=== PATIENT | male | born 1965 | race Caucasian/White ===

== ENCOUNTER 2021-08-30 09:47 | Emergency (ER) | payer MEDICAID, SELFPAY ==
[2021-08-30 09:48] VITALS: BP 119/64; PULSE 81; RESP 18; TEMP 36.7; O2SAT 96; BMI 35.0
[2021-08-30 09:56] VITALS: BP 119/64; PULSE 81; RESP 18; TEMP 36.6; O2SAT 96; BMI 35.2
--- NOTE | 2021-08-30 10:09 | XR_ITS ---
PROCEDURE INFORMATION: Exam: XR Right Ankle Exam date and time: 08/30/2021 10:09 AM Age: 56 years old Clinical indication: Patient HX: Fell yesterday; Right ankle pain/swelling; Additional info: Fall TECHNIQUE: Imaging protocol: XR Right ankle. Views: 3 or more views. COMPARISON: No relevant prior studies available. FINDINGS: Bones/joints: Acute nondisplaced medial malleolar avulsion fracture. Joint spaces are maintained. Soft tissues: Normal. IMPRESSION: Acute nondisplaced medial malleolar avulsion fracture.
--- NOTE | 2021-08-30 10:09 | XR_ITS ---
PROCEDURE INFORMATION: Exam: XR Right Tibia and Fibula Exam date and time: 08/30/2021 10:09 AM Age: 56 years old Clinical indication: Prior surgery; Surgery date: 6+ months; Patient HX: Fell yesterday; Right lower leg pain; Additional info: Fall TECHNIQUE: Imaging protocol: XR Right tibia and fibula. Views: 2 views. COMPARISON: CR XR ANKLE RT MIN 3V 08/30/2021 10:09 AM FINDINGS: Bones/joints: Acute oblique minimally displaced fracture through the proximal fibular diaphysis. Partially imaged intramedullary nail and screw fixation in the right femur. Fragmented superior patellar enthesophyte. Small knee joint effusion. Rounded mineralized joint bodies in the right knee joint. Soft tissues: Normal. IMPRESSION: 1. Acute oblique minimally displaced fracture through the proximal fibular diaphysis. 2. Rounded mineralized joint bodies in the right knee joint with small knee joint effusion.
--- NOTE | 2021-08-30 10:09 | XR_ITS ---
PROCEDURE INFORMATION: Exam: XR Right Knee Exam date and time: 08/30/2021 10:09 AM Age: 56 years old Clinical indication: Pain; Lower leg; Right; Prior surgery; Surgery date: 6+ months; Additional info: Fall TECHNIQUE: Imaging protocol: XR Right knee. Views: 3 views. COMPARISON: CR XR TIBIA FIBULA RT 2V 08/30/2021 10:11 AM FINDINGS: Bones/joints: Acute nondisplaced oblique fracture through the proximal right fibular diaphysis. Partially imaged intramedullary nail and screw fixation in the right femur. Fragmented superior patellar enthesophyte. Small knee joint effusion. Rounded mineralized joint bodies in the right knee joint. Moderate tricompartmental degenerative changes. Soft tissues: Normal. IMPRESSION: 1. Acute nondisplaced oblique fracture through the proximal right fibular diaphysis. 2. Rounded mineralized joint bodies in the right knee joint with small knee joint effusion.
[2021-08-30 10:32] VITALS: BP 119/64; PULSE 81; RESP 18; TEMP 36.6; O2SAT 96; BMI 35.2
--- NOTE | 2021-08-30 11:48 | HMH.EDLOEX ---
ED Disposition Clinical Impression: Closed right fibular fracture Qualifiers: Encounter type: initial encounter Fibula location: shaft Fracture morphology: oblique Fracture alignment: nondisplaced Qualified Code(s): S82.434A - Nondisplaced oblique fracture of shaft of right fibula, initial encounter for closed fracture Fracture of medial malleolus, right, closed Qualifiers: Encounter type: initial encounter Fracture alignment: nondisplaced Qualified Code(s): S82.54XA - Nondisplaced fracture of medial malleolus of right tibia, initial encounter for closed fracture Disposition: Home, Self-Care Condition on Discharge: Good Instructions: DI for Shinbone Fracture Prescriptions: Hydrocod/Acet 5/325 mg [[place] 5/325mg tablet] 1 tab PO Q6HP PRN #10 tab PRN Reason: Moderate Pain Transmission Status: Received by [id number] Referrals: Leighton Vanegas JR, MD [Primary Care Provider] - Montrell Hamm MD [Staff Physician] - Anna Alva DPM [Staff Physician] - - Critical Care Critical Care Time: No Attestation: On 08/30/21, the high probability of a clinically significant, sudden or life threatening deterioration of the following system(s) required my full and direct attention, intervention and personal management. The time I documented below is in addition to time spent performing reported procedures but includes the following listed in this critical care notation. Medical Decision Making - Medical Records Medical records reviewed: Yes: I reviewed the patient's medical records. - Darius Inquiry Pt receiving controlled substance: Yes Darius was queried for this patient: No Risks and benefits of using a controlled substance: were discussed with pt by me Vital Signs: 08/30/21 09:48 08/30/21 09:56 08/30/21 10:32 Temperature 98.1 F 97.8 F 97.8 F Temperature Source Oral Oral Oral Pulse Rate [Left Radial] 81 81 81 Respiratory Rate 18 18 18 Blood Pressure [Right Arm] 119/64 119/64 119/64 Blood Pressure Mean [Right Arm] 82 82 82 Blood Pressure Source [Right Arm] Automatic Cuff Blood Pressure Position [Right Arm] Sitting 02 Sat by Pulse Oximetry 96 96 96 Oxygen Delivery Method Room Air Orders (Tests/Meds): ED MEDICATIONS Discontinued Medications Generic Name Dose Route Start Last Admin Trade Name Freq PRN Reason Stop Dose Admin Hydrocodone Bitart/Acetaminophen 1 tab 08/30/21 10:46 08/30/21 11:03 Hydrocodone 10mg/Apap 325mg Tab PO 08/30/21 10:47 1 tab ONCE ONE Administration - Radiology Data #1 Image(s): Knee, Tib/Fib, Ankle Image Reviewed: Yes I reviewed the patient's radiology results, Yes I reviewed the patient's radiology image, Yes I have reviewed radiologist's interpretation IMPRESSION: 1. Acute oblique minimally displaced fracture through the proximal fibular diaphysis. 2. Rounded mineralized joint bodies in the right knee joint with small knee joint effusion. IMPRESSION: 1. Acute nondisplaced oblique fracture through the proximal right fibular diaphysis. 2. Rounded mineralized joint bodies in the right knee joint with small knee joint effusion. IMPRESSION: Acute nondisplaced medial malleolar avulsion fracture. - Reevaluation(s) Time: 11:52 Reevaluation #1: On reevaluation, patient's pain is improved. Does have evidence of fibular as well as medial malleolar fracture. Patient be placed in a posterior mold and stirrup immobilizer. Patient be given orthopedic surgery follow-up. Given strict return precautions. Verbalized understanding. Medical Decision Narrative: 56-year-old male presented to the emergency department with some right leg pain. Concern for fracture. Patient without analgesics. Work-up initiated. Lower Extremity Injury HPI - General Chief Complaint: Extremity Injury, Lower Stated Complaint: AO [id number] right ankle and leg pain Time Seen by Provider: 08/30/21 10:00 Mode of Arrival: Ambulatory Source
[2021-08-30 12:10] VITALS: BP 124/69; PULSE 78; RESP 16; TEMP 36.6; O2SAT 97
--- NOTE | 2021-08-30 12:15 | PC.NURSE ---
posterior, stirrup splint applied to rt leg
--- NOTE | 2021-08-30 12:16 | PC.NURSE ---
pt brought his own crutches. acknowledged understanding of crutch walking
== END 2021-08-30 12:16 | disposition home or self-care (01) ==
LOC: ER 10:00 → UTC 10:02 → ER 10:39
PROVIDERS: Emergency Provider Emergency Medicine; PCP Family Medicine
DX: S82.51XA Displaced fracture of medial malleolus of right tibia, initial encounter for closed fracture (principal); S22.31XA Fracture of one rib, right side, initial encounter for closed fracture; W11.XXXA Fall on and from ladder, initial encounter
CPT/HCPCS: 29515; 73562; 73590; 73610; 99283

== ENCOUNTER → 2021-08-31 16:32 | Outpatient (CLI) | payer MEDICAID, SELFPAY ==
--- NOTE | 2021-08-31 16:47 | XR_ITS ---
PROCEDURE INFORMATION: Exam: XR Chest Exam date and time: 08/31/21 04:47 PM Age: 56 years old Clinical indication: Other: Smoker; Additional info: Smoker, pre-op TECHNIQUE: Imaging protocol: XR of the chest. Views: 2 views. COMPARISON: No relevant prior studies available. FINDINGS: Lungs: Unremarkable. No consolidation. Pleural spaces: Unremarkable. No pleural effusion. No pneumothorax. Heart/Mediastinum: Unremarkable. No cardiomegaly. Bones/joints: Unremarkable. IMPRESSION: No acute findings.
[2021-08-31 17:02] LABS: Basophils # 0.1 K/mm3 (0-0.2); Eosinophils # 0.3 K/mm3 (0.0-0.4); Eosinophils % 3.7 % (0.1-12.0); Hematocrit 46.8 % (42.0-52.0); Hemoglobin 15.5 g/dL (14.1-18.0); Lymphocytes # 1.2 K/mm3 (0.7-4.5); Lymphocytes % 18.5 % (10-50); Mean Corpuscular HGB Conc 33.2 g/dL (31.8-35.4); Mean Corpuscular Hemoglobin 32.2 pg (27.0-31.2); Monocytes # 0.5 K/mm3 (0.1-1.0); Monocytes % 7.8 % (1.7-9.3); Neutrophils # 4.6 K/mm3 (1.8-7.8); Neutrophils % 69.1 % (37.0-80.0); Platelet Count 305 K/mm3 (142-424); Red Blood Count 4.83 M/mm3 (4.60-6.20); Red Cell Distribution Width 13.5 % (11.5-17.5); White Blood Count 6.7 K/mm3 (4.8-10.8)
--- NOTE | 2021-08-31 17:18 | ECG_ITS ---
APPROVED REPORT Exam: Resting ECG HR:81 bpm ECG Measurements Heart Rate 81 AXES NE 148 P QRSd 96 QRS -22 QT 374 T 117 QTc 434 Conclusion Sinus rhythm with premature atrial complexes Incomplete right bundle branch block Nonspecific T wave abnormality Abnormal ECG Electronically signed by : Richard Hunt MD 08/31/2021 21:18:23
[2021-08-31 17:33] LABS: Alanine Aminotransferase 29 U/L (12-78); Albumin Level 3.8 g/dl (3.5-5.0); Albumin/Globulin Ratio 1.4 (1.1-1.8); Alkaline Phosphatase 77 U/L (38-126); Anion Gap 9.4 mEq/L (5-15); Aspartate Amino Transferase 27 U/L (17-59); Bilirubin,Total 0.6 mg/dl (0.2-1.3); Blood Urea Nitrogen 13 mg/dl (9-20); Calcium 9.4 mg/dl (8.4-10.2); Carbon Dioxide 31 mmol/L (22.0-30.0); Chloride 102 mmol/L (98-107); Estimated Glomerular Filt Rate 138 ml/min (>60); GFR (African American) 167 ML/MIN (>60); Globulin 2.7 g/dL (1.3-3.2); Glucose 90 mg/dl (74-100); Potassium 4.4 mmoL/L (3.5-5.1); Sodium 138 mmol/L (136-145); Total Protein,Serum 6.5 g/dl (6.3-8.2)
[2021-08-31 17:46] LABS: 25-OH Vitamin D, Total 22.4 ng/mL (30-100)
== END ==
PROVIDERS: Visit Provider Podiatrist
DX: Z01.818 Encounter for other preprocedural examination (principal); S82.434A Nondisplaced oblique fracture of shaft of right fibula, initial encounter for closed fracture; S82.54XA Nondisplaced fracture of medial malleolus of right tibia, initial encounter for closed fracture
CPT/HCPCS: 36415; 71046; 80053; 82306; 85025; 93005

== ENCOUNTER → 2021-09-03 13:48 | Outpatient (CLI) | payer MEDICAID, SELFPAY ==
--- NOTE | 2021-09-03 13:49 | CA_ITS ---
APPROVED REPORT EXAM: Comprehensive 2D, Doppler, and color-flow Echocardiogram Pantograph Watcher: ANNA Bya, RVS Ht: 5 ft 10 in Wt: 245lbs BSA: 2.28 BP: 87/55 mmHg Indications: Pre-Op clearance, COPD, A-fib, HLD, Smoker, BARTON, RBBB, Alcoholism Echo Enhancing Agent Comments: Poor acoustics throughout exam due to large body and lung impedence. 2D Dimensions Left Atrium 3.46 cm LA Volume 50.90 mL LVOT 2.18 cm (M/F) 1.5-2.5 LA Volume Index 22.30 mL/m2 (M/F) 16-34 M-Mode Dimensions RVDd 3.59 cm (0.9-2.6) LA Diam 4.00 cm (1.9-4.0) LVDd 5.34 cm (3.5-5.7) Ao Diam 4.33 cm (2.0-3.7) LVDs 3.57 cm (3.5-5.7) IVSd 1.11 cm (0.6-1.1) PWd 1.00 cm (0.6-1.1) EF (Teich) 61.30% EPSs 0.56 cm FS 33.10% EDV (Teich) 137.70 mL TAPSE 2.62 (<1.7) ESV (Teich) 53.30 mL LV Diastology E Decel Time 257.00 (160-240 msec) E/A Ratio 1.22 MED E' 8.10 (< 7 cm/sec) MED A' 8.60 cm/s E'/MED E' Ratio 10.59 (>14) LAT E' 7.40 (<10 cm/sec) LAT A' 10.30 cm/s E/LAT E' Ratio 11.59 (>14) Aortic Valve LVOT Max 106.00 (70-110 cm/s) LVOT VTI 18.51 cm AoV Peak Karlo. 115.00 (50-130 cm/s) AO Peak GR. 5.30 mmHg AO Mean GR. 2.70 (<5 mmHg) AO VTI 19.22 (18-25 cm) ZULMA (VTI) 3.59 (2.5-4.5 cm2) Mitral Valve MV A Velocity 71.00 (40-130 cm/s) E/A Ratio 1.22 MV Decel. Time 257.00 (160-240 ms) Pulmonary Valve PV Peak Velocity 93.00 (50-150 cm/s) Tricuspid Valve TR P. Velocity 206.00 cm/s RAP Estimate 10.00 mmHg Left Ventricle Left atrium is mildly enlarged, left ventricle is normal size, mild concentric left ventricular hypertrophy, visually estimated ejection fraction 55% with no regional wall motion abnormality, endocardial surfaces are somewhat poorly visualized, diastolic parameters are inconclusive. Right Ventricle Right atrium and right ventricle mildly enlarged with normal contractility. Aortic Valve Aortic valve is minimally thickened and fibrosed, there is no aortic stenosis or aortic insufficiency. Mitral Valve Mitral valve grossly normal, there is trace mitral regurgitation. Tricuspid Valve Tricuspid valve grossly normal, there is trace tricuspid regurgitation, tricuspid regurgitation jet velocity is inadequate for calculation for the right ventricular systolic pressure. Pulmonic Valve Pulmonic valve is poorly visualized. Great Vessels Aortic root is normal size. Inferior vena cava is normal size with normal inspiratory collapse. Pericardium No significant pericardial effusion noted. Conclusion 1. Mild biatrial enlargement, normal left ventricular size, mild concentric left ventricular hypertrophy, visually estimated ejection fraction 55% with no obvious regional wall motion abnormality, endocardial surfaces were poorly visualized. Diastolic parameters are inconclusive in the study. 2. Mildly enlarged right ventricle with normal contractility. 3. Trace mitral and tricuspid regurgitation. 4. No significant pericardial effusion noted 5. Inferior vena cava is normal size with normal inspiratory collapse. Electronically signed by : Jamal Heard MD 09/03/2021 14:54:43
== END ==
PROVIDERS: PCP Family Medicine; Visit Provider Internal Medicine Cardiovascular Disease
DX: R06.00 Dyspnea, unspecified (principal); Z01.810 Encounter for preprocedural cardiovascular examination; R94.31 Abnormal electrocardiogram [ECG] [EKG]; I45.10 Unspecified right bundle-branch block; S82.434A Nondisplaced oblique fracture of shaft of right fibula, initial encounter for closed fracture; F10.20 Alcohol dependence, uncomplicated; F17.200 Nicotine dependence, unspecified, uncomplicated
CPT/HCPCS: 93306

== ENCOUNTER → 2021-09-04 07:55 | Outpatient (CLI) | payer MEDICAID, SELFPAY ==
--- NOTE | 2021-09-04 07:55 | NM_ITS ---
APPROVED REPORT Exam: Nuclear Stress Test Indication: Abnormal EKG, SOB, High cholesterol, Tobacco use, Family history Patient Location: Outpatient Stress Tech: Candie Stewart ND Tech:Marjan Wolfe, ARRT, RT (R)(N) Ht: 5 ft 10 in Wt: 245 lbs HR: 80 bpm BP: 125/83 mmHg BSA: 2.28 m2 BMI: 35.1 History: Abnormal EKG, SOB, High cholesterol, Tobacco use, Family history Procedure: Patient received a 0.4 mg of intravenous Lexiscan, resting heart rate 80 bpm, resting blood pressure 125/83 mmHg, with Lexiscan maximum heart rate achived was 99 bpm which is Less than 85 % of the maximum predicted heart rate and blood pressure was 125/83 mmHg. With Lexiscan, patient denied any complaint of chest pain. Electrocardiogram Resting electrocardiogram shows sinus rhythm, with Lexiscan there is less than 1.[address] segment depression noted from the baseline EKG. The EKG portion of the Lexiscan is nondiagnostic. Cardiac Stress and Resting SPECT Images: Cardiac Stress and Resting SPECT images were obtained using technetium 99m Myoview 28.2 mCi stress and 10.13 mCi at rest. Gated SPECT for analysis of segmental wall motion and calculation of the ejection fraction also done. Cardiac stress and resting SPECT images show fixed defect involving the inferior wall with decreased contractility on gated SPECT is likely secondary to myocardial scarring without significant jules-infarct ischemia, computer derived ejection fraction is 40% with moderate inferior wall hypokinesis. Right ventricle is mildly enlarged with normal contractility. Conclusion: 1. The EKG portion of the Lexiscan is nondiagnostic. 2. Scintigraphic evidence of inferior wall myocardial scarring without significant jules-infarct ischemia, compared right ejection fraction is 40% with moderate inferior wall hypokinesis, right ventricle is mildly enlarged with normal contractility. 3. Abnormal Lexiscan Myoview study. Electronically signed by : Jamal Heard MD 09/04/2021 13:39:59
--- NOTE | 2021-09-04 10:23 | HMH.ITSHM ---
Current Home Medications as stated by this patient Jaylon De Leon or asset protection representative. []ROSUVASTATIN OXYCODONE FLUTICASONE DICLOFENAC ALBUTEROL NORCO
--- NOTE | 2021-09-04 10:50 | CA_ITS ---
APPROVED REPORT Exam: Pharmacologic Technologist: Candie Stewart, Ht: 5 ft 10 in Wt: 245 lbs BSA: 2.28 m2 HR: 77 bpm BP: 125/85 mmHg Medical History Medications: PERCOCET,,,,, ADVAIR,,,,, OxYCODONE,,,,, Diclofenac Sodium,,,,, Albuterol sulfate,,,,, Stress Test Details Test: LEXISCAN HR Resting HR: 80 bpm Max Heart Rate (APMHR): 162.953232 bpm Max HR Achieved: 99 bpm Target HR (85% APMHR): 137.578129 bpm % of APMHR: 61.11 BP Resting BP: 125/83 mmHg Max BP: 125/83 mmHg ECG Resting ECG: NSR Clinical Reason for Termination: Completed Protocol Exercise duration: 04:01 min Highest Stage Achieved: Exercise capacity: 1.0 METs Stress ECG Conclusion Atrial ectopy (triplets) noted. Symptoms: No CP. Arrhythmias/Ectopy: None ST-T Changes: <1.[address] Segment changes. Conclusion: Non-Diagnostic Electronically signed by : Jamal Heard MD 09/04/2021 13:07:32
== END ==
PROVIDERS: PCP Family Medicine; Visit Provider Internal Medicine Cardiovascular Disease
DX: Z01.810 Encounter for preprocedural cardiovascular examination (principal); R06.00 Dyspnea, unspecified; R94.31 Abnormal electrocardiogram [ECG] [EKG]; I45.10 Unspecified right bundle-branch block; S82.434A Nondisplaced oblique fracture of shaft of right fibula, initial encounter for closed fracture; F10.20 Alcohol dependence, uncomplicated; F17.200 Nicotine dependence, unspecified, uncomplicated
CPT/HCPCS: 78452; 93017; A9502; J2785

== ENCOUNTER → 2021-09-07 12:29 | Outpatient (CLI) | payer MEDICAID, SELFPAY ==
[2021-09-07 13:21] LABS: Basophils # 0.1 K/mm3 (0-0.2); Eosinophils # 0.2 K/mm3 (0.0-0.4); Eosinophils % 3.2 % (0.1-12.0); Hematocrit 48.1 % (42.0-52.0); Hemoglobin 15.5 g/dL (14.1-18.0); Lymphocytes # 1.3 K/mm3 (0.7-4.5); Lymphocytes % 19.2 % (10-50); Mean Corpuscular HGB Conc 32.2 g/dL (31.8-35.4); Mean Corpuscular Hemoglobin 32.2 pg (27.0-31.2); Mean Platelet Volume 7.2 fl (7.4-10.4); Monocytes # 0.6 K/mm3 (0.1-1.0); Monocytes % 8.2 % (1.7-9.3); Neutrophils # 4.7 K/mm3 (1.8-7.8); Neutrophils % 68.3 % (37.0-80.0); Platelet Count 296 K/mm3 (142-424); Red Blood Count 4.81 M/mm3 (4.60-6.20); Red Cell Distribution Width 12.7 % (11.5-17.5); White Blood Count 6.9 K/mm3 (4.8-10.8)
[2021-09-07 13:34] LABS: Anion Gap 10.4 mEq/L (5-15); Blood Urea Nitrogen 12 mg/dl (9-20); Calcium 9.4 mg/dl (8.4-10.2); Carbon Dioxide 33 mmol/L (22.0-30.0); Chloride 99 mmol/L (98-107); Estimated Glomerular Filt Rate 138 ml/min (>60); GFR (African American) 167 ML/MIN (>60); Glucose 111 mg/dl (74-100); Potassium 4.4 mmoL/L (3.5-5.1); Sodium 138 mmol/L (136-145)
== END ==
PROVIDERS: Visit Provider Nurse Practitioner Family
DX: Z01.810 Encounter for preprocedural cardiovascular examination (principal); Z11.52 Encounter for screening for COVID-19; R06.00 Dyspnea, unspecified; I20.8 Other forms of angina pectoris; R94.30 Abnormal result of cardiovascular function study, unspecified; R94.31 Abnormal electrocardiogram [ECG] [EKG]; E78.5 Hyperlipidemia, unspecified; F17.200 Nicotine dependence, unspecified, uncomplicated
CPT/HCPCS: 36415; 80048; 85025; C9803; U0003; U0005

== ENCOUNTER 2021-09-08 12:55 | Day surgery (SDC) | payer MEDICAID, SELFPAY ==
[2021-09-08] VITALS (10 sets, daily range): BP systolic 124–138; BP diastolic 57–82; PULSE 55–68; RESP 13–20; TEMP 36.6; O2SAT 92–99; BMI 35.2
--- NOTE | 2021-09-08 | IR_ITS ---
APPROVED REPORT Patient Location: Outpatient [place] Operator: ELIJAH Patel RT (R) PROCEDURES 1. Left Heart Cathaterization 2. Selective coronary arteriography 3. Left Ventriculography INDICATION 1. Angina, 2. Abnormal myoview, 3. Pre op SCAI INDICATION 56 yo white male. Cardiac symptoms. Abnormal myoview, and patient is pre op for ortho surgery. Refered for [facility]. Informed consent was obtained prior to the procedure. COMPLICATIONS none Estimated Blood Loss: less than 10 ml TECHNIQUE One percent lidocaine was used to anesthetize the right groin. The right femoral artery was accessed via the Seldinger technique. A 4-Wolof sheath was placed in the right femoral artery. The JL-4 and JR-4 catheter was also used to perform left heart catheterization left ventriculogram and selective coronary angiogram. At the end of the procedure the patient was transferred to the post-op holding area in stable condition for arterial sheath removal. ANGIOGRAPHIC RESULTS The left main artery normal The left anterior descending artery smooth 20% proximal and smooth 20% mid The circumflex artery normal The right coronary artery large and dominant with mild luminal irregularities The LAYNE ventriculogram reveals normal ef 55-60%. no WMA and no MR The left ventricular end-diastolic pressure 12 Angioseal placed IMPRESSION 1. Trivial CAD 2. Normal LV function 3. Noirmal LVEDP 4. Angioseal PLAN 1. No further cardiac testing needed prior to surgery. Trivial CAD and LV function is normal. Follow up in cardiology clinic in 1-2 weeks. Electronically signed by : Freddy Lim MD 09/08/2021 15:13:12
== END 2021-09-08 17:02 | disposition home or self-care (01) ==
LOC: CATHLAB 12:57
PROVIDERS: Internal Medicine; PCP Family Medicine; Visit Provider Internal Medicine Cardiovascular Disease
DX: I25.118 Atherosclerotic heart disease of native coronary artery with other forms of angina pectoris (principal); Z79.899 Other long term (current) drug therapy; J44.9 Chronic obstructive pulmonary disease, unspecified; F17.210 Nicotine dependence, cigarettes, uncomplicated; R06.00 Dyspnea, unspecified; R94.31 Abnormal electrocardiogram [ECG] [EKG]
CPT/HCPCS: 93458; 99152; C1725; C1760; C1769; J1644; Q9967

== ENCOUNTER 2021-09-09 08:45 | Day surgery (SDC) | payer MEDICAID, SELFPAY ==
[2021-09-07 09:31] VITALS: BMI 35.2
[2021-09-09] VITALS (11 sets, daily range): BP systolic 96–133; BP diastolic 59–77; PULSE 48–75; RESP 12–18; TEMP 36.2–43; O2SAT 90–96
--- NOTE | 2021-09-09 13:51 | XR_ITS ---
PROCEDURE: XR ANKLE RT 2V CLINICAL INDICATION: TENDON REPAIR COMPARISON: CR XR ANKLE RT MIN 3V from 08/30/2021 FINDINGS: Fluoroscopy time: 0.24 minutes. AP and oblique view submitted with C-arm demonstrating a lateral fibular bone plate and medial tibial button from syndesmotic repair with good alignment. IMPRESSION: Status post syndesmotic repair with fluoroscopic assistance Dictated by: Keith Magallon MD 09/09/2021 15:18 Keith Magallon MD in [place] 09/09/2021 15:18
--- NOTE | 2021-09-09 14:00 | XR_ITS ---
PROCEDURE: XR ANKLE RT MIN 3V CLINICAL INDICATION: Post op ankle COMPARISON: CR XR ANKLE RT MIN 3V from 08/30/2021 CR XR ANKLE RT 2V from 09/09/2021 FINDINGS: There is a posterior splint in place. Status post syndesmotic repair with a lateral fibular bone plate and medial tibial button with preservation of the ankle mortise. There is a nondisplaced fracture of the posterior distal tibia longitudinal in nature. There is also nondisplaced fracture involving the tip of the medial malleolus. The joint spaces are well-preserved. No significant degenerative/arthritic changes. No erosive changes evident. Other findings:None. IMPRESSION: Good alignment postsurgical changes with nondisplaced fractures of the posterior distal tibia and the tip of the medial malleolus with splint in place Dictated by: Keith Magallon MD 09/09/2021 15:17 Keith Magallon MD in [place] 09/09/2021 15:17
--- NOTE | 2021-09-09 14:10 | HMH.ANESCL ---
[facility] Anesthesia Checklist - Structural Data Admitted From: Home Planned Operative Procedure/s: orif r ankle Consent for Planned Operative Procedure(s) Verified: Yes - Additional verifications Anesthesia Reactions: No Hx Blood Transfusions: No Blood Transfusion Reaction: No - Airway Assessment C-Spine Mobility Assessed: Yes TMJ Mobility Assessed: Yes Dentition: Good Dentition - Neurological Assessment Level of Consciousness: Awake, Alert, Appropriate - Anesthesia Plan Anesthesia Risk discussed: Yes Anesthesia Plan: Verified ASA Class: III Anesthesia Type: General w/block - Preoperative Comments Pre-Operative Comments: nerve block exp to pt pt agrees tp proceed [facility] History I have reviewed the patient's past medical history: Yes Medical History: Reports:: Asthma, Chronic Obstructive Pulmonary Disease (COPD) Denies:: Cancer, Diabetes Mellitus Type 1, Diabetes Mellitus Type 2, Internal Pacemaker, MRSA, Seizures *Have you ever received a pneumonia vaccine?: Yes *Have you received a flu vaccine this season?: Yes Other Medical History: Denies: Blood Transfusion Reaction Anesthesia experience/problems:: none Other Surgeries: Yes: Hernia Repair. No: Pacemaker Amputation: No Fractures: Yes - *Social History Last grade of school completed: High school graduate Smoking Status: Current every day smoker Tobacco Type: cigarettes # Packs/Day (cigarettes): 1 Alcohol Intake: current Alcohol Intake Frequency:: 3 or more drinks per day Substance Use Type: marijuana, crack/cocaine *Occupational Status:: employed Housing: house *Travel in the last 8 weeks: None Family Hx:: Diabetes, Heart Attack, Stroke
--- NOTE | 2021-09-09 14:11 | HMH.ANESI ---
[facility] Anesthesia Record Part I Intake, IV Amount: 1,500 Estimated blood loss (mL): 0 Urine output (mL): 0 Blood Pressure: 133/77 SaO2: 95 Pulse Rate: 60 Respiratory Rate: 12 Temperature: 97.2 F Patient is:: Awake, Stable Stable to PACU at:: 14:05
--- NOTE | 2021-09-09 14:17 | HMH.OPNOTE ---
Date of procedure: 09/09/21 Pre-op Diagnosis:: 1. Right ankle fracture: medial malleolus 2. Right proximal fibula fracture 3. Right syndesmosis tear Post-op Diagnosis:: Same Procedure performed:: 1. Right closed reduction (medial malleolus, proximal fibula) ankle fracture 2. Right ORIF syndesmosis 3. Application of injectable graft 4. Application of posterior splint Surgeon:: Anna Alva DPM Trail Maintenance Worker(s):: Carolina Murdock CLOTH CLASSER:: Jarocho Almonte Anesthesia: GETA, regional (right popliteal block) Estimated blood loss (mL): 15 Clinical Note:: Right Ankle Fracture, DOI: 08/29/21, fall from ladder. X-rays reviewed and discussed with the patient. Conservative treatment discussed but not recommended. We discussed surgery due to syndesmosis injury. Explained the proximal fibula is not fixated due to common peroneal nerve. All risks and benefits were discussed including but not limited to: damage to blood vessels and nerves, bleeding, infection, wound complications, delayed, mal or non-union of bone, post-traumatic arthritis, need for further surgery, implant failure, need for removal of implant, prolonged or permanent swelling of the extremity, prolonged or permanent pain or deformity, CRPS/RSD, DVT/PE, and anesthetic complications including . No guarantees were given. All questions fully answered. The patient verbalized understanding and agreed to proceed with surgery. Consent was obtained. Necessary labs and pre-op testing ordered: CBC, BMP, EKG, CXR, vit D, covid. EKG: Sinus rhythm with premature atrial complexes. Incomplete right bundle branch block. Nonspecific T wave abnormality. Abnormal ECG. Cardiology did heart cath and cleared. e-Rx for Oxycodone, Zofran, Motrin, vit D, Flexeril. Patient has crutches and walker at home. Recommend RKS. Operative findings:: A proximal fibular fracture noted. Small avulsion medial malleolus fracture noted. Syndesmosis instability. After closed reduction of the ankle, the proximal fibula and medial malleolus were aligned. Operative note:: On this date and time patient was deemed an appropriate surgical candidate. Pre-op regional popliteal nerve block performed by anesthesia. With informed consent signed, the patient was taken to the operating theater. The patient was positioned supine. IV Ancef given. General anesthesia was induced. Tourniquet was applied to the right thigh @250 mmHg. The right lower extremity was prepped and draped in normal sterile fashion. Right closed reduction ankle fracture: Attention was directed to the ankle, which was distracted under intraoperative fluoroscopy. The proximal fibula fracture and the medial malleolus fracture were both reduced and well aligned. There was some syndesmotic instability. Right open reduction internal fixation syndesmosis: Attention was directed to the lateral ankle where a linear incision was made. Dissection carried down full-thickness to expose the distal fibula. A SeatSwapr 4-hole syndesmosis plate was then inserted on the distal fibula. A 3.5 mm locking screw was inserted proximally and distally on the plate. In accordance with chief of vital statistics guidelines and standard technique a [facility] synch fix suture was inserted into the central hole, from lateral to medial posterior to anterior. Position was checked under intraoperative fluoroscopy. A second Synch fix was then inserted. Reduction of the syndesmosis was noted. Final position was checked under intraoperative fluoroscopy. Ankle was reduced, fixation was deemed to be appropriate and stable. The wound was flushed with copious amounts of normal sterile saline. 2-0, 3-0 Vicryl was used to reapproximate deep and subcutaneous tissue. 3-0 strata fix was then used to reapproximate the skin in a running subcuticular fashion. Skin was cleansed. Dermabond pernio used over the incision sites. Application of injectable graft, posterior splint: Via flow was inserted into the incision sites. 20cc of 0.5% Marcaine p
--- NOTE | 2021-09-09 14:49 | XR_ITS ---
PROCEDURE: XR TIBIA FIBULA RT 2V CLINICAL INDICATION: POST OP RIGHT TIB FIB COMPARISON: CR XR TIBIA FIBULA RT 2V from 08/30/2021 FINDINGS: There has been interval syndesmotic repair with a lateral fibular bone plate and tibial button. Minimally displaced fracture involves the proximal fibula with mild dorsal displacement of the proximal fracture fragment by 3 mm. Fracture line is still visible. Numerous loose bodies are present in the knee joint. Intramedullary ryan is present in the distal femur. Posterior splint is noted. There is a nondisplaced longitudinal fracture of the posterior distal tibia IMPRESSION: Postsurgical changes as described above with minimally displaced proximal fibular shaft fracture and nondisplaced distal tibial fracture Dictated by: Keith Magallon MD 09/09/2021 15:10 Keith Magallon MD in [place] 09/09/2021 15:10
--- NOTE | 2021-09-11 12:31 | P.PN_ITS ---
[facility] Anesthesia Record Part II Discharge Time: 14:35 Destination: [facility] PACU nurse assessment reviewed?: Yes Patient Condition:: Good Anesthesia Complications:: None Swallowing reflex intact?: Yes Cyanosis?: No Blood Pressure: 105/62 Pulse Rate: 70 Temperature: 97.1 F Mental Status: Alert & Oriented Pain level:: 0 Nausea and/or vomitting:: None Intake, IV Amount: 1,500
[2021-09-11 12:32] VITALS: BP 105/62; PULSE 70; TEMP 36.2
== END 2021-09-09 15:20 | disposition home or self-care (01) ==
LOC: OR 08:49
PROVIDERS: PCP Family Medicine; Visit Provider Podiatrist
PROC: (CPT 27829; principal; 2021-09-09 10:15)
DX: S82.434A Nondisplaced oblique fracture of shaft of right fibula, initial encounter for closed fracture (principal); S93.431A Sprain of tibiofibular ligament of right ankle, initial encounter; S82.54XA Nondisplaced fracture of medial malleolus of right tibia, initial encounter for closed fracture; F17.210 Nicotine dependence, cigarettes, uncomplicated; J44.9 Chronic obstructive pulmonary disease, unspecified; W11.XXXA Fall on and from ladder, initial encounter; Z79.899 Other long term (current) drug therapy; Z79.51 Long term (current) use of inhaled steroids
CPT/HCPCS: 27829; 73590; 73600; 73610; 94640; 96374; C1713; C1762; C1776; J2405

== ENCOUNTER → 2021-10-20 10:34 | Outpatient (CLI) | payer MEDICAID, SELFPAY ==
--- NOTE | 2021-10-20 10:44 | XR_ITS ---
PROCEDURE: XR ANKLE WT BEARING RT MIN 3V CLINICAL INDICATION: fracture eval COMPARISON: CR XR ANKLE RT MIN 3V from 08/30/2021 CR XR ANKLE RT MIN 3V from 09/09/2021 CR XR ANKLE RT 2V from 09/09/2021 FINDINGS: Status post syndesmotic repair. Good alignment. Nondisplaced fracture at the tip of the medial malleolus once again noted partially-healed. Ankle mortise is preserved. Talar dome has an unremarkable appearance. IMPRESSION: Good alignment status post ORIF distal tib fib as described above Dictated by: Keith Magallon MD 10/20/2021 11:34 Keith Magallon MD in [place] 10/20/2021 11:34
--- NOTE | 2021-10-20 10:44 | XR_ITS ---
PROCEDURE: XR TIBIA FIBULA RT 2V CLINICAL INDICATION: fracture eval COMPARISON: CR XR TIBIA FIBULA RT 2V from 08/30/2021 CR XR TIBIA FIBULA RT 2V from 09/09/2021 FINDINGS: Osteoarthritic changes are present involving the right knee with numerous loose bodies. There is an intramedullary ryan in the distal aspect of the femur incompletely imaged and an old proximal patellar fracture. Healing fracture noted of the proximal fibula. The fracture is oblique. 3 mm dorsal displacement the proximal fracture fragment unchanged. Status post ORIF distal tib fib as described in the ankle report. Good alignment. IMPRESSION: Healing proximal fibular fracture. Status post ORIF distal tib fib. Osteoarthritic changes of the knee with numerous loose bodies. Dictated by: Keith Magallon MD 10/20/2021 11:39 Keith Magallon MD in [place] 10/20/2021 11:39
== END ==
PROVIDERS: PCP Family Medicine; Visit Provider Podiatrist
DX: S82.861A Displaced Maisonneuve's fracture of right leg, initial encounter for closed fracture (principal); S82.401A Unspecified fracture of shaft of right fibula, initial encounter for closed fracture; S82.51XA Displaced fracture of medial malleolus of right tibia, initial encounter for closed fracture; S93.431A Sprain of tibiofibular ligament of right ankle, initial encounter
CPT/HCPCS: 73590; 73610

== ENCOUNTER 2021-11-10 09:00 | Outpatient (RCR) | payer MEDICAID, SELFPAY ==
--- NOTE | 2021-10-28 15:16 | HMH.PTOPEV ---
PT Outpatient Evaluation Rehab PT Outpatient Evaluation Start: 10/28/21 12:57 Freq: Status: Active Protocol: Document 10/28/21 14:50 PHORJUAN (Rec: 10/28/21 15:15 PHORNE [id number]) Electronically Signed By Pipe Bishop, PT 10/28/21 14:50 Outpatient Therapy Subjective History Subjective History Pt is 56 yowm who presents ~ 1 .5 mos S/P R ankle bi- malleolar fx ORIF with continued swelling, pain, and stiffness. He fell from a ladder resulting in his injury as well as a spiral fx of the proximal fibula. He reports significant soreness and pain, but not all from the ankle. Most of his pain is at the R knee, but this is a result of significant prior injury with surgery and hardware placement in the femur. He also reports hx of chronic severe low back pain with numbness in the R ankle and COPD. He presents today without cam walker, but wearing lace-up ankle brace, and using axillary crutches. Chief Complaint Pain,Stiff,Swelling Symptom Type Ache Symptoms Relieved By Rest/Positioning Symptoms Aggravated By Standing,Physical Activity, Walking Prior Functional Limitations None Current Functional Limitations Standing,Recreation Activity, Walking Symptom Description Constant but Variable Level of pain today (0-10) 2 Pain scale - at its worst (0-10) 10 Ankle/Foot Eval Gait Observation General Gait Pattern Observation Antalgic Gait Assistive Device Ambulation Assistive Device Axillary Crutches Palpation Tenderness right Ankle/Foot Palpation Findings Tenderness Ankle/Foot Palpation Overall Comment peroneal tendon ATF TTP positive ROM Ankle/Foot Dorsiflexion w/Knee Extended 0-4 Active Range Motion (degrees) Ankle/Foot Plantar Flexion Active Range 0-16 of Motion (degrees) Ankle/Foot Eversion Active Range of 0-12 Motion (degrees) Ankle/Foot Inversion Active Range of 0-20 Motion (degrees) MMT Ankle Dorsiflexion Strength Grade 3 Fair Ankle Plantarflexion Strength Grade 3 Fair Foot Eversion Strength Grade 3 Fair Foot Inversion Strength Grade 3 Fair Special Tests Ankle Anterior Drawer Test
== END 2021-11-10 09:05 | disposition home or self-care (01) ==
LOC: PT 09:00
PROVIDERS: PCP Family Medicine; Visit Provider Podiatrist
DX: S82.861D Displaced Maisonneuve's fracture of right leg, subsequent encounter for closed fracture with routine healing (principal); S82.51XD Displaced fracture of medial malleolus of right tibia, subsequent encounter for closed fracture with routine healing; Z87.81 Personal history of (healed) traumatic fracture; Z98.890 Other specified postprocedural states
CPT/HCPCS: 97010; 97014; 97110; 97140; 97163; 97760; G0283

== ENCOUNTER → 2021-12-08 12:58 | Outpatient (CLI) | payer MEDICAID, SELFPAY ==
--- NOTE | 2021-12-08 13:03 | XR_ITS ---
FINAL REPORT CLINICAL HISTORY: postop views, fracture eval weightbearing COMPARISON: October 01, 2021 FINDINGS: RIGHT ANKLE: Three views of the right ankle were obtained. There is no acute fracture or dislocation. There are mild degenerative changes. There are postoperative changes of the distal tibia and fibula. There is no soft tissue abnormality. IMPRESSION: Postoperative and degenerative changes. Reviewed, Interpreted and Dictated by Josh Del Valle III, MD Transcribed by Purvi Chiang Authenticated by Josh eDl Valle III, MD on 12/08/2021 02:32:[address] [facility]
--- NOTE | 2021-12-08 13:03 | XR_ITS ---
FINAL REPORT CLINICAL HISTORY: fracture evaluation weight bearing COMPARISON: October 20, 2021 FINDINGS: RIGHT TIBIA FIBULA 2 views were obtained. There are subacute fractures of the proximal fibular metaphysis and diaphysis with callus formation at fracture sites. There are moderate degenerative changes of the knee. There are presumed loose bodies within the knee joint. There are postoperative changes of the distal tibia. The joint spaces are intact. There is no soft tissue abnormality. IMPRESSION: Fibular fractures as described. Reviewed, Interpreted and Dictated by Josh Del Valle III, MD Transcribed by Purvi Chiang Authenticated by Josh Del Valle III, MD on 12/08/2021 02:32:[address] [facility]
== END ==
PROVIDERS: PCP Family Medicine; Visit Provider Podiatrist
DX: S82.401A Unspecified fracture of shaft of right fibula, initial encounter for closed fracture (principal); S82.51XA Displaced fracture of medial malleolus of right tibia, initial encounter for closed fracture; Z87.81 Personal history of (healed) traumatic fracture; Z98.890 Other specified postprocedural states; S82.861A Displaced Maisonneuve's fracture of right leg, initial encounter for closed fracture
CPT/HCPCS: 73590; 73610

== ENCOUNTER → 2022-02-09 08:57 | Outpatient (CLI) | payer MEDICAID, SELFPAY ==
--- NOTE | 2022-02-09 09:03 | XR_ITS ---
FINAL REPORT CLINICAL HISTORY: fracture evaluation COMPARISON: 12/08/2021 FINDINGS: RIGHT TIBIA FIBULA Two views demonstrate orthopedic hardware in the distal tibia/fibula. There are moderate hypertrophic changes at the lateral compartment joint space of the knee. IMPRESSION: Postsurgical changes as detailed above. Reviewed, Interpreted and Dictated by Zak Zheng MD Transcribed by Vijaya Avina Authenticated by Zak Zheng MD on 02/09/2022 11:26:45 AM [facility]
--- NOTE | 2022-02-09 09:03 | XR_ITS ---
FINAL REPORT CLINICAL HISTORY: postop views COMPARISON: 12/08/2021 FINDINGS: RIGHT ANKLE Three views demonstrate orthopedic hardware securing the distal tibia and fibula. The mortise is intact. Well corticated ossific density is seen inferior to the medial malleolus measuring 8 mm. There is a small joint effusion. IMPRESSION: Postsurgical changes as detailed above. Reviewed, Interpreted and Dictated by Zak Zheng MD Transcribed by Vijaya Avina Authenticated by Zak Zheng MD on 02/09/2022 11:26:35 AM [facility]
== END ==
PROVIDERS: PCP Family Medicine; Visit Provider Podiatrist
DX: S82.861A Displaced Maisonneuve's fracture of right leg, initial encounter for closed fracture (principal); Z87.81 Personal history of (healed) traumatic fracture; Z98.890 Other specified postprocedural states
CPT/HCPCS: 73590; 73610

== ENCOUNTER → 2022-11-19 13:24 | Outpatient (CLI) | payer MEDICAID, SELFPAY ==
[2022-11-19 14:35] LABS: Basophils # 0.1 K/mm3 (0-0.2); Basophils % 1.2 % (0.1-2.0); Eosinophils # 0.1 K/mm3 (0.0-0.4); Eosinophils % 1.7 % (0.1-12.0); Hematocrit 44.8 % (42.0-52.0); Hemoglobin 14.4 g/dL (14.1-18.0); Lymphocytes # 1.5 K/mm3 (0.7-4.5); Lymphocytes % 27.3 % (10-50); Mean Corpuscular HGB Conc 32.1 g/dL (31.8-35.4); Mean Corpuscular Hemoglobin 30.6 pg (27.0-31.2); Mean Corpuscular Volume 95.3 fl (80-94); Mean Platelet Volume 7.4 fl (7.4-10.4); Monocytes # 0.5 K/mm3 (0.1-1.0); Monocytes % 8.4 % (1.7-9.3); Neutrophils # 3.4 K/mm3 (1.8-7.8); Neutrophils % 61.4 % (37.0-80.0); Platelet Count 313 K/mm3 (142-424); Red Cell Distribution Width 12.8 % (11.5-17.5); White Blood Count 5.5 K/mm3 (4.8-10.8)
[2022-11-19 14:53] LABS: Alanine Aminotransferase 28 U/L (12-78); Albumin Level 4.3 g/dl (3.5-5.0); Alkaline Phosphatase 79 U/L (38-126); Anion Gap 11.2 mEq/L (5-15); Aspartate Amino Transferase 31 U/L (17-59); Bilirubin,Direct 0.1 mg/dl (0.0-0.4); Bilirubin,Indirect 0.8 mg/dL (0.0-0.9); Bilirubin,Total 0.9 mg/dl (0.2-1.3); Bilirubin,Unconjugated 0.8 mg/dL (0.0-1.1); Blood Urea Nitrogen 29 mg/dl (9-20); Calcium 9.3 mg/dl (8.4-10.2); Carbon Dioxide 30 mmol/L (22.0-30.0); Chloride 102 mmol/L (98-107); Chol/HDL Ratio 3.2 (1-3.5); Cholesterol 144 mg/dl (140-200); Estimated Glomerular Filt Rate 99 ml/min (>60); GFR (African American) 120 ML/MIN (>60); Glucose 109 mg/dl (74-100); HDL Cholesterol 45 mg/dl (40-60); Magnesium 1.8 mg/dl (1.6-2.3); Potassium 4.2 mmoL/L (3.5-5.1); Sodium 139 mmol/L (136-145); Total Protein,Serum 6.7 g/dl (6.3-8.2); Triglycerides 78 mg/dl (30-150); VLDL Cholesterol 16 mg/dL (0-40)
[2022-11-19 15:03] LABS: Direct LDL Cholesterol 82.71 mg/dL (100-129)
[2022-11-19 15:09] LABS: Free T4 (Free Thyroxine) 0.93 ng/dl (0.78-2.19)
[2022-11-19 15:23] LABS: Thyroid Stimulating Hormone 0.89 uIU/mL (0.465-4.68)
== END ==
PROVIDERS: PCP Family Medicine; Referring Provider Nurse Practitioner Family; Visit Provider Physician Assistant
DX: R06.00 Dyspnea, unspecified (principal); I25.10 Atherosclerotic heart disease of native coronary artery without angina pectoris; E78.2 Mixed hyperlipidemia; F17.200 Nicotine dependence, unspecified, uncomplicated
CPT/HCPCS: 36415; 80048; 80061; 80076; 83735; 84439; 84443; 85025

== ENCOUNTER → 2022-11-24 14:46 | Outpatient (CLI) | payer MEDICAID, SELFPAY ==
--- NOTE | 2022-11-24 14:51 | CT_ITS ---
FINAL REPORT CLINICAL HISTORY: Patient has been smoking 1 pack a day for 35 years. He states he has copd and emphysema. FINDINGS: Low-Dose Chest CT Axial images were obtained from the lung apex to the mid abdomen by computed tomography. Low-dose protocol was utilized. CTDI vol (mGy): 2.90 DLP (mGy-cm): 96.38 There is no axillary adenopathy. There is no hilar or mediastinal adenopathy. The heart is proper size. There is no pericardial or pleural effusion. Lung window images demonstrate airspace disease in the right lower lobe posteriorly which is suspicious for pneumonia. There is a 7 mm ground-glass nodule in the right upper lobe along the minor fissure. No other nodules are identified. Limited images of the upper abdomen are unremarkable. IMPRESSION: No evidence of primary pulmonary neoplasm. Probable right lower lobe pneumonia. Lung RADS category 2S. Recommend [address] follow-up for continued surveillance of presumed pneumonia and continued 12 month follow-up low-dose chest CT. Reviewed, Interpreted and Dictated by Hemant Chavez MD Transcribed by Purvi Chiang Authenticated and [facility]
--- NOTE | 2022-11-24 15:15 | MR_ITS ---
PROCEDURE INFORMATION: Exam: MR Right Lower Extremity Joint Without Contrast, Knee Exam date and time: 11/24/2022 4:00 PM Age: 57 years old Clinical indication: Pain; Knee; Prior surgery; Surgery date: 6+ months; Surgery type: Right femur and right ankle; Additional info: Right knee pain. [place] pop x 1 month ago. TECHNIQUE: Imaging protocol: Magnetic resonance imaging of the Right lower extremity joint without contrast. Exam focused on the knee. COMPARISON: CR XR KNEE RT 3V 08/30/2021 10:12 AM FINDINGS: Bones and cartilage: There is some artifact related to distal femoral medullary ryan. Mild associated anterior translation of the tibia relative to distal femur with mild buckling of intact appearing posterior cruciate ligament. Moderate overall tricompartmental osteoarthritis with areas of full-thickness articular cartilage loss femoral side of the medial compartment and limited adjacent subchondral edema. No acute fracture. Moderate effusion. Small Senior's cyst containing loose bodies. There are additional intra-articular loose bodies most evident anteriorly, measuring up to 15 mm. Joint spaces: No joint effusion. Medial meniscus: Unremarkable. No tear. Lateral meniscus: Tear of anterior root of the lateral meniscus which may be chronic. 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 No intact remaining fibers. Posterior cruciate ligament: Unremarkable. No tear. Medial capsule and supporting structures: Unremarkable. No tear. Lateral capsule and supporting structures: Unremarkable. No tear. Extensor mechanism of knee: Unremarkable. No tear. Muscles: Unremarkable. Soft tissues: Unremarkable. IMPRESSION: 1. 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 No intact remaining fibers. 2. Mild associated anterior translation of the tibia relative to distal femur with mild buckling of intact appearing posterior cruciate ligament. 3. Tear of anterior root of the lateral meniscus which may be chronic. 4. Moderate overall tricompartmental osteoarthritis with areas of full-thickness articular cartilage loss femoral side of the medial compartment and limited adjacent subchondral edema. No acute fracture. 5. Moderate effusion. Small Senior's cyst containing loose bodies. There are additional intra-articular loose bodies most evident anteriorly, measuring up to 15 mm.
== END ==
PROVIDERS: PCP Family Medicine; Visit Provider Family Medicine
DX: Z87.891 Personal history of nicotine dependence (principal); Z12.2 Encounter for screening for malignant neoplasm of respiratory organs; J44.9 Chronic obstructive pulmonary disease, unspecified; M25.561 Pain in right knee
CPT/HCPCS: 71271; 73721

== ENCOUNTER → 2022-12-10 12:38 | Outpatient (CLI) | payer MEDICAID, SELFPAY ==
--- NOTE | 2022-12-10 12:38 | CT_ITS ---
FINAL REPORT TECHNIQUE: Thin section axial images were obtained from the thoracic inlet through the upper abdomen after intravenous contrast injection. CLINICAL HISTORY: RLL pneumonia follow-up COMPARISON: Low-dose chest CT dated 11/24/2022 FINDINGS: There is no axillary lymphadenopathy. Small AP window lymph nodes are stable. There is no hilar lymphadenopathy. The heart size is normal. There is no pleural or pericardial effusion. Peripheral gland grass and airspace opacities in the inferior right lower lobe appears slightly worse as compared to the prior exam. There are no other areas of consolidation. A 5 mm right upper lobe nodule seen on image 43 is unchanged. Limited evaluation of the upper abdomen shows a hypervascular lesion in the right lobe of the liver on image 84 and measures 2.2 cm. This is indeterminate and could represent a hemangioma. Other enhancing lesion is not excluded. The remainder of the upper abdomen is without acute abnormality. There is no acute osseous abnormality. There are multiple old posterior right rib fractures. IMPRESSION: 1. Slight worsening of ground-glass and airspace opacities in the right lower lobe, favor pneumonia. However, follow-up exam in 2-3 months is recommended. If persistent at that time, bronchoscopy may be needed for further evaluation. 2. Stable 5 mm right upper lobe nodule. 3. Peripherally enhancing liver lesion may be a hemangioma. CT or MRI with liver protocol is recommended for further evaluation. Reviewed, Interpreted and Dictated by Theresa Medeiros MD Transcribed by Kayla Doty Authenticated and [facility]
== END ==
PROVIDERS: PCP Family Medicine; Visit Provider Family Medicine
DX: J18.9 Pneumonia, unspecified organism (principal)
CPT/HCPCS: 71260; Q9967

== ENCOUNTER → 2023-02-23 09:36 | Outpatient (CLI) | payer MEDICAID, SELFPAY ==
[2023-02-23 10:35] LABS: Chloride 106 mmol/L (98-107); Sodium 139 mmol/L (136-145)
[2023-02-23 10:38] LABS: Alanine Aminotransferase 26 U/L (12-78); Albumin/Globulin Ratio 1.8 (1.1-1.8); Alkaline Phosphatase 84 U/L (38-126); Aspartate Amino Transferase 28 U/L (17-59); Bilirubin,Total 0.7 mg/dl (0.2-1.3); Blood Urea Nitrogen 20 mg/dl (9-20); Carbon Dioxide 28 mmol/L (22.0-30.0); Estimated Glomerular Filt Rate 99 ml/min (>60); GFR (African American) 120 ML/MIN (>60); Globulin 2.2 g/dL (1.3-3.2); Total Protein,Serum 6.2 g/dl (6.3-8.2)
[2023-02-23 10:39] LABS: Calcium 8.8 mg/dl (8.4-10.2); Glucose 139 mg/dl (74-100)
[2023-02-23 18:24] LABS: Anion Gap 9.1 mEq/L (5-15); Potassium 4.1 mmoL/L (3.5-5.1)
[2023-02-23 21:47] LABS: Hemoglobin A1C 5.9 % (4.0-6.0)
== END ==
PROVIDERS: PCP Family Medicine; Visit Provider Family Medicine
DX: I25.10 Atherosclerotic heart disease of native coronary artery without angina pectoris (principal); R73.01 Impaired fasting glucose; E78.2 Mixed hyperlipidemia; B35.0 Tinea barbae and tinea capitis; F17.200 Nicotine dependence, unspecified, uncomplicated; J18.9 Pneumonia, unspecified organism; J44.9 Chronic obstructive pulmonary disease, unspecified; M17.9 Osteoarthritis of knee, unspecified; M25.569 Pain in unspecified knee; M71.20 Synovial cyst of popliteal space [Baker], unspecified knee; S83.209A Unspecified tear of unspecified meniscus, current injury, unspecified knee, initial encounter; S83.519A Sprain of anterior cruciate ligament of unspecified knee, initial encounter
CPT/HCPCS: 36415; 80053; 83036

== ENCOUNTER → 2023-03-11 07:48 | Outpatient (CLI) | payer MEDICAID, SELFPAY ==
--- NOTE | 2023-03-11 07:49 | CT_ITS ---
FINAL REPORT TECHNIQUE: Axial CT images of the abdomen were obtained with IV contrast only. Coronal reformatted images were also obtained. This study was performed with techniques to keep radiation doses as low as reasonably achievable (ALARA). Individualized dose reduction techniques using automated exposure control or adjustment of mA and/or kV according to the patient''s size were employed. CLINICAL HISTORY: liver lesion seen on prior ct FINDINGS: Mass involving the anterior inferior right hepatic lobe is again identified but not as well visualized, likely due to phase of contrast. This is of uncertain etiology but may represent a hemangioma. Moderate vascular calcification is identified. The pancreas appears normal. The spleen size is within normal limits. There is no evidence of renal mass or hydronephrosis. There is no evidence of adenopathy. No abnormal fluid collection is seen. No localized inflammatory processes identified. IMPRESSION: Hepatic mass as above, favor benign but consider follow-up CT or MRI. Reviewed, Interpreted and Dictated by Josh Del Valle III, MD Transcribed by Vijaya Avina Authenticated and [facility]
--- NOTE | 2023-03-11 07:49 | CT_ITS ---
FINAL REPORT CLINICAL HISTORY: f/u rll pneumonia COMPARISON: 12/10/2022 FINDINGS: Axial CT images of the chest were obtained with contrast. Coronal reformatted images were also obtained. This study was performed with techniques to keep radiation doses as low as reasonably achievable, (ALARA). Individualized dose reduction techniques using automated exposure control or adjustment of mA and/or KV according to the patient's size were employed. There is no evidence of mediastinal or hilar mass or adenopathy. No axillary mass or adenopathy is identified. There are persistent bibasilar opacities, favor scarring. There are multiple chronic right rib fractures. IMPRESSION: Persistent bibasilar opacities, favor scarring. Reviewed, Interpreted and Dictated by Josh Del Valle III, MD Transcribed by Vijaya Avina Authenticated and [facility]
== END ==
PROVIDERS: PCP Family Medicine; Visit Provider Family Medicine
DX: R93.2 Abnormal findings on diagnostic imaging of liver and biliary tract (principal); J18.9 Pneumonia, unspecified organism
CPT/HCPCS: 71260; 74160; Q9967

== ENCOUNTER → 2023-06-02 08:22 | Outpatient (CLI) | payer MEDICAID, SELFPAY ==
[2023-06-02 08:40] LABS: Basophils % 0.2 % (0.1-2.0); Eosinophils # 0.1 K/mm3 (0.0-0.4); Eosinophils % 1.8 % (0.1-12.0); Hematocrit 46.2 % (42.0-52.0); Hemoglobin 14.8 g/dL (14.1-18.0); Lymphocytes # 0.9 K/mm3 (0.7-4.5); Lymphocytes % 12.3 % (10-50); Mean Corpuscular HGB Conc 32.2 g/dL (31.8-35.4); Mean Corpuscular Hemoglobin 29.7 pg (27.0-31.2); Mean Corpuscular Volume 92.3 fl (80-94); Mean Platelet Volume 7.5 fl (7.4-10.4); Monocytes # 0.5 K/mm3 (0.1-1.0); Neutrophils # 5.9 K/mm3 (1.8-7.8); Neutrophils % 78.7 % (37.0-80.0); Platelet Count 233 K/mm3 (142-424); Red Cell Distribution Width 12.9 % (11.5-17.5); White Blood Count 7.5 K/mm3 (4.8-10.8)
[2023-06-02 08:49] LABS: Hemoglobin A1C 6.2 % (4.0-6.0)
[2023-06-02 09:01] LABS: Alanine Aminotransferase 25 U/L (12-78); Albumin Level 3.8 g/dl (3.5-5.0); Albumin/Globulin Ratio 1.5 (1.1-1.8); Alkaline Phosphatase 111 U/L (38-126); Anion Gap 10.8 mEq/L (5-15); Aspartate Amino Transferase 23 U/L (17-59); Bilirubin,Total 0.4 mg/dl (0.2-1.3); Blood Urea Nitrogen 27 mg/dl (9-20); Calcium 8.8 mg/dl (8.4-10.2); Carbon Dioxide 31 mmol/L (22.0-30.0); Chloride 103 mmol/L (98-107); Chol/HDL Ratio 2.5 (1-3.5); Cholesterol 112 mg/dl (140-200); Estimated Glomerular Filt Rate 86 ml/min (>60); GFR (African American) 105 ML/MIN (>60); Globulin 2.5 g/dL (1.3-3.2); Glucose 113 mg/dl (74-100); HDL Cholesterol 44 mg/dl (40-60); Potassium 3.8 mmoL/L (3.5-5.1); Sodium 141 mmol/L (136-145); Total Protein,Serum 6.3 g/dl (6.3-8.2); Triglycerides 137 mg/dl (30-150); VLDL Cholesterol 27 mg/dL (0-40)
[2023-06-02 09:12] LABS: Direct LDL Cholesterol 55.17 mg/dL (100-129)
== END ==
PROVIDERS: PCP Nurse Practitioner Family; Visit Provider Family Medicine
DX: R73.01 Impaired fasting glucose (principal); E78.5 Hyperlipidemia, unspecified; I10 Essential (primary) hypertension
CPT/HCPCS: 36415; 80053; 80061; 83036; 85025

== ENCOUNTER → 2023-08-25 01:10 | Outpatient (CLI) | payer MEDICAID, SELFPAY ==
[2023-08-25 13:51] LABS: Microscopic, Urine URINE MICROSCOPIC (MICROSCOPIC)
[2023-08-25 14:17] LABS: Appearance,Urine CLEAR (Clear); Bilirubin,Urine Negative (Negative); Blood, Urine Negative (Negative); Color,Urine YELLOW (Yellow); Glucose,Urine (UA) Negative (Negative); Hemoglobin A1C 5.8 % (4.0-6.0); Ketones,Urine Negative (Negative); Leukocyte Esterase,Urine Negative (Negative); Nitrate,Urine Negative (Negative); Protein,Urine Negative (Negative); Specific Gravity, Urine 1.025 (1.005-1.030); Urobilinogen,Urine 0.2 EU/dl (0.2)
[2023-08-25 15:33] LABS: Alanine Aminotransferase 20 U/L (12-78); Albumin Level 4.1 g/dl (3.5-5.0); Albumin/Globulin Ratio 1.5 (1.1-1.8); Alkaline Phosphatase 90 U/L (38-126); Anion Gap 11.3 mEq/L (5-15); Aspartate Amino Transferase 24 U/L (17-59); Bilirubin,Total 0.7 mg/dl (0.2-1.3); Blood Urea Nitrogen 23 mg/dl (9-20); Calcium 9.2 mg/dl (8.4-10.2); Carbon Dioxide 29 mmol/L (22.0-30.0); Chloride 105 mmol/L (98-107); Chol/HDL Ratio 3.6 (1-3.5); Cholesterol 133 mg/dl (140-200); Estimated Glomerular Filt Rate 99 ml/min (>60); GFR (African American) 119 ML/MIN (>60); Globulin 2.7 g/dL (1.3-3.2); Glucose 102 mg/dl (74-100); HDL Cholesterol 37 mg/dl (40-60); Potassium 4.3 mmoL/L (3.5-5.1); Sodium 141 mmol/L (136-145); Total Protein,Serum 6.8 g/dl (6.3-8.2); Triglycerides 105 mg/dl (30-150); VLDL Cholesterol 21 mg/dL (0-40)
[2023-08-25 15:49] LABS: Free T4 (Free Thyroxine) 0.93 ng/dl (0.78-2.19)
[2023-08-25 16:05] LABS: Prostate Specific Ag Screen 0.5 ng/ml (0.0-4.0); Thyroid Stimulating Hormone 0.99 uIU/mL (0.465-4.68)
[2023-08-25 16:24] LABS: Vitamin B12 240 pg/mL (239-931)
[2023-08-25 16:48] LABS: Squamous Epithelial Cell,Urine Occasional #/hpf (0-5)
[2023-08-25 18:28] LABS: Creatinine,Urine Random 114 mg/dL (Not Estab.); Microalbumin/Creatinine Ratio 13.1; Total Protein,Urine Random < 5.0 mg/dL (0.0-12.0)
[2023-08-25 19:10] LABS: 25-OH Vitamin D, Total 38.6 ng/mL (30-100)
[2023-08-27 08:19] LABS: Testosterone,Total 301 ng/dL (264-916)
[2023-08-30 22:39] LABS: Vitamin B1 152.1 nmol/L (66.5-200.0)
[2023-08-31 14:12] LABS: Vitamin B6 7.5 ug/L (3.4-65.2)
== END ==
PROVIDERS: PCP Nurse Practitioner Family; Visit Provider Nurse Practitioner Family
DX: I10 Essential (primary) hypertension (principal); R53.83 Other fatigue; E55.9 Vitamin D deficiency, unspecified; R73.03 Prediabetes; E78.5 Hyperlipidemia, unspecified; F10.20 Alcohol dependence, uncomplicated; L65.9 Nonscarring hair loss, unspecified; Z12.5 Encounter for screening for malignant neoplasm of prostate
CPT/HCPCS: 80053; 80061; 81001; 82043; 82306; 82570; 82607; 83036; 84155; 84207; 84403; 84425; 84439; 84443; 87086; G0103

== ENCOUNTER 2023-11-15 11:33 | Emergency (ER) | payer MEDICAID, SELFPAY ==
--- NOTE | 2023-11-15 11:33 | ECG_ITS ---
APPROVED REPORT Exam: Resting ECG HR:73 bpm ECG Measurements Heart Rate 73 AXES MD 169 P 82 QRSd 106 QRS 6 QT 381 T 61 QTc 407 Conclusion SINUS RHYTHM POSSIBLE RIGHT VENTRICULAR CONDUCTION DELAY [RSR (QR) IN V1/V2] BORDERLINE ECG UNCONFIRMED REPORT Electronically signed by : Richard Hunt MD 11/16/2023 09:01:52
[2023-11-15 11:34] VITALS: BP 128/96; PULSE 93; RESP 20; TEMP 36.8; O2SAT 98; BMI 31.5
--- NOTE | 2023-11-15 11:39 | PC.NURSE ---
Dr. Araujo at [facility] for pt eval
--- NOTE | 2023-11-15 11:44 | XR_ITS ---
FINAL REPORT CLINICAL HISTORY: Shortness of breath COMPARISON: 08/31/2021 FINDINGS: The heart size is normal. The mediastinum is normal. There is no focal infiltrate or edema. There are no pleural effusions. There is no pneumothorax. There is healed fracture deformity of the right lateral ribs. IMPRESSION: No acute cardiopulmonary process Reviewed, Interpreted and Dictated by Zak Zheng MD Transcribed by Radha Etienne Authenticated and [facility]
--- NOTE | 2023-11-15 11:45 | HMH.EDGENADL ---
Discharge Plan Disposition Patient Disposition: Home, Self-Care Prescriptions Prescriptions: No Action rosuvastatin 20 mg tablet 20 mg PO DAILY Qty: 90 3RF bisoprolol fumarate 5 mg tablet 5 mg PO DAILY albuterol sulfate [ProAir HFA] 90 mcg/actuation HFA aerosol inhaler 2 inh INHALATION Q4-6H PRN (Reason: emphazema) Qty: 8.5 3RF clotrimazole 1 % solution 1 applic topical BID 14 Days Qty: 30 0RF ketoconazole 2 % shampoo 1 applic topical .COMPLEX Qty: 120 0RF Rx Instructions: 1 applic topically 2 times per week; meloxicam 15 mg tablet 15 mg PO DAILY Qty: 30 3RF fluticasone propion-salmeterol [Advair Diskus] 100-50 mcg/dose blister with device 1 inh INHALATION BID Qty: 60 3RF Paxlovid 300 mg (150 mg x 2)-100 mg tablets,dose pack See Rx Instructions PO .COMPLEX Qty: 30 0RF Rx Instructions: take TWO 150 mg tablets of nirmatrelvir with ONE 100 mg tablet of ritonavir twice daily for 5 days PO Activity Restrictions/Add. Instructions Additional Instructions/Restrictions: No evidence of an acute cardiopulmonary emergency specifically no evidence of a myocardial injury which would include a heart attack within the last several days. 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 Additionally there were no significant complications of COVID identified no pneumonia etc. The treatment for that will be supportive and per your primary care doctor. Clinical Impressions Clinical Impression: COVID-19, Left-sided chest wall pain Discharge ED Provider: Kateryna Araujo General Adult HPI General Chief complaint: Chest Pain Stated complaint: chest pain covid + Time Seen by Provider: 11/15/23 11:38 History of Present Illness HPI narrative: Patient is a 58-year-old male presenting today with chest pain which happened on Tuesday was very short-lived and his family convinced him to come to the emergency department today. He states that if he did not come to the emergency department that they would give him a heart attack. States that he also has had a cough and congestion that began at the end of last week he had an initial negative COVID test on last Tuesday but then took another COVID test yesterday which was positive. States that from that standpoint he feels well also denies any chest pain shortness of breath any other symptoms at this point. Only symptoms of chest discomfort which was on the left lateral aspect of the chest wall nonradiating not dyspnea no diaphoresis only lasted for short period time at 1 time. No history of any acute coronary syndrome or coronary disease that he is aware of. Other than chronic smoking and multiple musculoskeletal problems he denies any other medical problems. Related Data Home Medications Medication Instructions Recorded Confirmed bisoprolol fumarate 5 mg tablet 5 mg PO DAILY BP 08/25/23 09/29/23 Previous Rx's Medication Instructions Recorded rosuvastatin 20 mg tablet 20 mg PO DAILY Cholesterol #90 tabs 03/29/23 fluticasone 100 mcg-salmeterol 50 1 inh inhalation BID Asthma #60 ea 07/22/23 mcg/dose blistr powdr for inhalation (Advair Diskus) meloxicam 15 mg tablet 15 mg PO DAILY #30 tabs 07/22/23 albuterol sulfate 90 mcg/actuation 2 inh inhalation Q4-6H PRN 08/25/23 aerosol inhaler (ProAir HFA) emphazema #8.5 grams clotrimazole 1 % topical solution 1 applic topical BID 2 weeks #30 mL 08/25/23 ketoconazole 2 % shampoo 1 applic topical .COMPLEX #120 mL 08/25/23 nirmatrelvir 300 mg (150 mg See Rx Instructions PO .COMPLEX 11/15/23 x2)-ritonavir 100 mg tablet,dose #30 tabs pack (Paxlovid) Allergies Allergy/AdvReac Type Severity Reaction Status Date / Time No Known Allergies Allergy Verified 09/29/23 08:[address] [facility] Disclaimer: The information contained in this section may have been updated after the patient was seen, as this information can be updated by other users. Medical [facility]
[2023-11-15 11:56] LABS: Basophils % 0.3 % (0.1-2.0); Eosinophils # 0.1 K/mm3 (0.0-0.4); Eosinophils % 1.6 % (0.1-12.0); Hematocrit 41.2 % (42.0-52.0); Hemoglobin 13.8 g/dL (14.1-18.0); Lymphocytes # 1.2 K/mm3 (0.7-4.5); Lymphocytes % 18.6 % (10-50); Mean Corpuscular HGB Conc 33.4 g/dL (31.8-35.4); Mean Corpuscular Volume 92.8 fl (80-94); Mean Platelet Volume 7.9 fl (7.4-10.4); Monocytes # 0.4 K/mm3 (0.1-1.0); Monocytes % 5.3 % (1.7-9.3); Neutrophils # 4.9 K/mm3 (1.8-7.8); Neutrophils % 74.2 % (37.0-80.0); Platelet Count 259 K/mm3 (142-424); Red Blood Count 4.44 M/mm3 (4.60-6.20); Red Cell Distribution Width 12.9 % (11.5-17.5); White Blood Count 6.6 K/mm3 (4.8-10.8)
[2023-11-15 11:59] LABS: Chloride 101 mmol/L (98-107); Sodium 139 mmol/L (136-145)
[2023-11-15 12:00] LABS: Potassium 3.9 mmoL/L (3.5-5.1)
[2023-11-15 12:01] VITALS: BP 137/83; PULSE 81; RESP 24; O2SAT 96
[2023-11-15 12:02] LABS: Alanine Aminotransferase 30 U/L (12-78); Alkaline Phosphatase 76 U/L (38-126); Aspartate Amino Transferase 33 U/L (17-59); Bilirubin,Total 0.6 mg/dl (0.2-1.3); Blood Urea Nitrogen 16 mg/dl (9-20); Estimated Glomerular Filt Rate 137 ml/min (>60); GFR (African American) 166 ML/MIN (>60)
[2023-11-15 12:03] LABS: Albumin Level 3.9 g/dl (3.5-5.0); Albumin/Globulin Ratio 1.3 (1.1-1.8); Anion Gap 14.9 mEq/L (5-15); Calcium 8.5 mg/dl (8.4-10.2); Carbon Dioxide 27 mmol/L (22.0-30.0); Globulin 3.1 g/dL (1.3-3.2); Glucose 182 mg/dl (74-100)
[2023-11-15 12:23] VITALS: PULSE 90
[2023-11-15 12:24] LABS: Troponin I < 0.01 ng/ml (0.00-0.034)
[2023-11-15 12:57] VITALS: BP 143/94; PULSE 76; RESP 16; TEMP 36.8; O2SAT 97
== END 2023-11-15 12:59 | disposition home or self-care (01) ==
PROVIDERS: Emergency Provider Student in an Organized Health Care Education/Training Program
DX: U07.1 COVID-19 (principal); R07.89 Other chest pain; J44.9 Chronic obstructive pulmonary disease, unspecified; I10 Essential (primary) hypertension; E78.5 Hyperlipidemia, unspecified; F17.210 Nicotine dependence, cigarettes, uncomplicated; I45.9 Conduction disorder, unspecified
CPT/HCPCS: 71045; 80053; 84484; 85025; 93005; 99285

== ENCOUNTER 2023-12-13 08:56 | Outpatient (CLI) | payer MEDICAID, SELFPAY ==
--- NOTE | 2023-12-13 08:56 | CT_ITS ---
FINAL REPORT TECHNIQUE: Pre- and postcontrast images of the abdomen were performed by computed tomography. This study was performed with techniques to keep radiation doses as low as reasonably achievable (ALARA). Individualized dose reduction techniques using automated exposure control or adjustment of mA and/or kV according to the patient's size were employed. CLINICAL HISTORY: liver lesion seen on 02/2023 FINDINGS: The liver parenchyma is homogeneous. There is an area of abnormal attenuation in the anterior/inferior right lobe of the liver measuring 1.6 cm in greatest dimension. There is peripheral discontinuous enhancement. Findings are favored to represent a hemangioma. This is best seen on images 33 and 34 of series 5. This focus is not seen on the delayed phase images. The spleen is unremarkable. The adrenals are normal. The pancreas is unremarkable. The kidneys enhance appropriately. IMPRESSION: Small peripherally enhancing focus in the right lobe of the liver favored to represent a hemangioma. Ultrasound could be obtained to confirm this. Reviewed, Interpreted and Dictated by Zak Zheng MD Transcribed by Vijaya Avina Authenticated and [facility]
--- NOTE | 2023-12-13 08:56 | CT_ITS ---
FINAL REPORT TECHNIQUE: Axial images were obtained from the lung apex to the mid abdomen by computed tomography. This study was performed with techniques to keep radiation doses as low as reasonably achievable (ALARA). Individualized dose reduction techniques using automated exposure control or adjustment of mA and/or kV according to the patient's size were employed. CLINICAL HISTORY: lung cancer screening current smoker 1ppd x30 years COMPARISON: 03/11/2023 FINDINGS: CHEST CT LOW DOSE CTDI vol (mGy): 2.90 DLP (mGy-cm): 102.64 There is no axillary adenopathy. There is no hilar or mediastinal adenopathy. The heart is normal in size. There is no pericardial or pleural effusion. There is scarring at the bases. There is a 5 mm nodule along the minor fissure best seen on image 43 of series 4. Limited images of the upper abdomen are unremarkable. IMPRESSION: Nodule along the minor fissure. Lung RADS category 2. Recommend 12 month follow-up low-dose chest CT. Reviewed, Interpreted and Dictated by Zak Zheng MD Transcribed by iVjaya Avina Authenticated and [facility]
[2023-12-13] MEDS: SODIUM CHLORIDE 0.9% 10ML SYR (RAD ONLY) 10 ML IV (09:30)
[2023-12-13] MEDS: IOPAMIDOL-370 (76%);100ML BOTTLE 75 ML IV (09:30)
== END 2023-12-13 23:59 ==
LOC: RAD 08:56
PROVIDERS: PCP Nurse Practitioner Family; Visit Provider Nurse Practitioner Family
DX: Z12.2 Encounter for screening for malignant neoplasm of respiratory organs (principal); Z87.891 Personal history of nicotine dependence; R93.2 Abnormal findings on diagnostic imaging of liver and biliary tract
CPT/HCPCS: 71271; 74170; Q9967

== ENCOUNTER 2023-12-19 09:11 | Outpatient (CLI) | payer MEDICAID, SELFPAY ==
--- NOTE | 2023-12-19 09:11 | US_ITS ---
FINAL REPORT TECHNIQUE: Multiple transverse and longitudinal images CLINICAL HISTORY: area of abnormal attenuation in the liver COMPARISON: CT of the abdomen dated 12/13/2023 FINDINGS: There is a 2.8 cm hyperechoic lesion in the anterior aspect of the liver, which was not seen on the CT examination of December 13. There is a smaller 1.5 cm hyperechoic lesion noted in the liver adjacent to the gallbladder fossa, which correlates with the lesion seen on CT. No evidence of gallstones or biliary ductal dilatation are seen. IMPRESSION: 2 hyperechoic lesions are present in the liver as described, one of which was not seen on the prior CT of December 13. These most likely represent hemangiomas, although one of the lesions was not seen on CT, and would recommend MR correlation to confirm. Reviewed, Interpreted and Dictated by Hemant Chavez MD Transcribed by Shilpi Morirs Authenticated and [facility]
== END 2023-12-19 23:59 ==
LOC: RAD 09:11
PROVIDERS: PCP Nurse Practitioner Family; Visit Provider Nurse Practitioner Family
DX: R93.2 Abnormal findings on diagnostic imaging of liver and biliary tract (principal)
CPT/HCPCS: 76705

== ENCOUNTER 2024-01-26 06:52 | Outpatient (CLI) | payer MEDICAID, SELFPAY ==
--- NOTE | 2024-01-26 07:27 | MR_ITS ---
FINAL REPORT CLINICAL HISTORY: abnormal abd CT with liver lesions ct abdomen - 12/13/23 us liver -12/19/23 20 ml prohance given COMPARISON: CT 12/13/2023 and ultrasound 12/19/2023 FINDINGS: Multiplanar MR imaging of the abdomen was performed without and with contrast. There is motion artifact on many of the images decreasing sensitivity of this exam. Focal opacity in the posterior right lower lobe measuring approximately 22 mm was present on the prior CT and of uncertain etiology but favored to represent atelectasis or scar. There is a 17 mm lobular mass in the anterior segment of the right hepatic lobe near the gallbladder fossa which shows discontinuous peripheral contrast-enhancement consistent with a hemangioma. There is also a 10 mm cyst in the inferior right hepatic lobe. There is no evidence of biliary ductal dilatation. The gallbladder has an unremarkable appearance. No other mass or adenopathy is identified. No abnormal fluid collection is seen. No abnormal contrast enhancement is seen on the postcontrast images. IMPRESSION: Findings in the liver consistent with hemangiomas. Reviewed, Interpreted and Dictated by Josh Del Valle III, MD Transcribed by Radha Etienne Authenticated and . [facility]
[2024-01-26 07:32] LABS: Blood Urea Nitrogen 22 mg/dl (9-20); Estimated Glomerular Filt Rate 86 ml/min (>60); GFR (African American) 104 ML/MIN (>60)
[2024-01-26] MEDS: 0.9 % SODIUM CHLORIDE 50 ML VIAL IV (08:29)
[2024-01-26] MEDS: SODIUM CHLORIDE 0.9% 10ML SYR (RAD ONLY) 10 ML IV (08:29)
[2024-01-26] MEDS: GADOTERIDOL INJ 17ML SYRINGE 20 ML IV (08:29)
== END 2024-01-26 23:59 ==
LOC: RAD 06:52
PROVIDERS: PCP Nurse Practitioner Family; Visit Provider Nurse Practitioner Family
DX: R93.2 Abnormal findings on diagnostic imaging of liver and biliary tract; K76.89 Other specified diseases of liver
CPT/HCPCS: 74183; 82565; 84520; A9576

== ENCOUNTER 2024-03-29 09:38 | Outpatient (CLI) | payer MEDICAID, SELFPAY ==
[2024-03-29 10:09] LABS: Basophils # 0.1 K/mm3 (0-0.2); Basophils % 1.1 % (0.1-2.0); Eosinophils # 0.3 K/mm3 (0.0-0.4); Eosinophils % 3.9 % (0.1-12.0); Hematocrit 44.2 % (42.0-52.0); Hemoglobin 14.3 g/dL (14.1-18.0); Lymphocytes # 1.4 K/mm3 (0.7-4.5); Lymphocytes % 22.1 % (10-50); Mean Corpuscular HGB Conc 32.4 g/dL (31.8-35.4); Mean Corpuscular Hemoglobin 30.9 pg (27.0-31.2); Mean Corpuscular Volume 95.5 fl (80-94); Mean Platelet Volume 7.9 fl (7.4-10.4); Monocytes # 0.6 K/mm3 (0.1-1.0); Monocytes % 9.1 % (1.7-9.3); Neutrophils # 4.1 K/mm3 (1.8-7.8); Neutrophils % 63.8 % (37.0-80.0); Platelet Count 220 K/mm3 (142-424); Red Blood Count 4.62 M/mm3 (4.60-6.20); Red Cell Distribution Width 13.6 % (11.5-17.5); White Blood Count 6.4 K/mm3 (4.8-10.8)
[2024-03-29 10:48] LABS: Alanine Aminotransferase 21 U/L (12-78); Albumin Level 3.9 g/dl (3.5-5.0); Alkaline Phosphatase 110 U/L (38-126); Anion Gap 12.1 mEq/L (5-15); Aspartate Amino Transferase 24 U/L (17-59); Bilirubin,Direct 0.1 mg/dl (0.0-0.4); Bilirubin,Indirect 0.3 mg/dL (0.0-0.9); Bilirubin,Total 0.4 mg/dl (0.2-1.3); Bilirubin,Unconjugated 0.3 mg/dL (0.0-1.1); Blood Urea Nitrogen 23 mg/dl (9-20); Calcium 9.3 mg/dl (8.4-10.2); Carbon Dioxide 30 mmol/L (22.0-30.0); Chloride 105 mmol/L (98-107); Chol/HDL Ratio 3.3 (1-3.5); Cholesterol 184 mg/dl (140-200); Estimated Glomerular Filt Rate 86 ml/min (>60); GFR (African American) 104 ML/MIN (>60); Glucose 107 mg/dl (74-100); HDL Cholesterol 55 mg/dl (40-60); Potassium 4.1 mmoL/L (3.5-5.1); Sodium 143 mmol/L (136-145); Total Protein,Serum 6.6 g/dl (6.3-8.2); Triglycerides 195 mg/dl (30-150); VLDL Cholesterol 39 mg/dL (0-40)
[2024-03-29 10:57] LABS: Free T4 (Free Thyroxine) 0.77 ng/dl (0.78-2.19)
[2024-03-29 11:18] LABS: Thyroid Stimulating Hormone 0.73 uIU/mL (0.465-4.68)
== END 2024-03-29 23:59 | disposition home or self-care (01) ==
LOC: LAB 09:40
PROVIDERS: PCP Nurse Practitioner Family; Visit Provider Physician Assistant
DX: R06.00 Dyspnea, unspecified (principal); R94.31 Abnormal electrocardiogram [ECG] [EKG]; I25.10 Atherosclerotic heart disease of native coronary artery without angina pectoris; I11.9 Hypertensive heart disease without heart failure; E78.2 Mixed hyperlipidemia; K21.9 Gastro-esophageal reflux disease without esophagitis; F17.200 Nicotine dependence, unspecified, uncomplicated; Z79.899 Other long term (current) drug therapy
CPT/HCPCS: 36415; 80048; 80061; 80076; 84439; 84443; 85025

== ENCOUNTER 2024-04-28 15:39 | Emergency (ER) | payer MEDICAID, SELFPAY ==
[2024-04-28 15:51] VITALS: BP 124/84; PULSE 94; RESP 18; TEMP 36.6; O2SAT 98; BMI 31.5
--- NOTE | 2024-04-28 16:00 | ED_ITS ---
Discharge Plan Disposition Patient Disposition: Home, Self-Care Prescriptions Prescriptions: New mupirocin 2 % ointment 1 applic topical TID 5 Days Qty: 22 0RF No Action rosuvastatin 20 mg tablet 20 mg PO DAILY Qty: 90 3RF bisoprolol fumarate 5 mg tablet 5 mg PO DAILY Qty: 90 3RF albuterol sulfate [ProAir HFA] 90 mcg/actuation HFA aerosol inhaler 2 inh INHALATION Q4-6H PRN (Reason: emphazema) Qty: 8.5 3RF meloxicam 15 mg tablet 15 mg PO DAILY Qty: 90 1RF clotrimazole 1 % solution 1 applic topical BID 14 Days Qty: 30 0RF fluticasone propion-salmeterol [Advair Diskus] 100-50 mcg/dose blister with device 1 inh INHALATION BID Qty: 60 3RF ketoconazole 2 % shampoo 1 applic topical .COMPLEX Qty: 120 0RF Rx Instructions: 1 applic topically 2 times per week; Referrals Follow up/Referrals: Radha Vidales APRN [Primary Care Provider] - See instructions Activity Restrictions/Add. Instructions Additional Instructions/Restrictions: Mupirocin 3 times daily for 5 days. Be sure to use a clean Q-tip and do not contaminate the cap of the ointment by using a dirty Q-tip to collect more ointment. Call your family doctor to establish care for this visit to the emergency department and schedule follow-up within 48 hours to ensure improvement. If you have any worsening of your condition or any other concerning signs or symptoms, return to the emergency department or your primary care doctor for further evaluation. Clinical Impressions Clinical Impression: Impetigo bullosa Instructions Patient Instructions: DI for Skin Abscess Discharge ED Provider: Ed Flannery General Adult HPI General Chief complaint: Skin/Abscess/Foreign Body Stated complaint: Sore on left ankle Time Seen by Provider: 04/28/24 15:47 Mode of Arrival: Ambulatory Source of Information: Patient Limitations: No Limitations Description of Symptoms (Recalled from ER Triage Doc. by RN): pt reports working outside and getting chigger bites x3wk ago. pt states one of them is now infected on the medial aspect of his L ankle. pt presents with LLE 1+ edema, L ankle is warm to the touch, an open area of skin. History of Present Illness HPI narrative: 58-year-old male history of prediabetes presenting with sore to his left ankle. Patient's it is that he has got a bunch of chigger bites of his legs from working outside. One of the bites on the medial aspect of his left ankle, he believes he scratched off with his toe. Since yesterday, it has turned into a blister and popped. Stated it was thick and purulent. No fevers or chills, surrounding redness, warmth, pain, or any other concerns. Does not have lesions elsewhere. Related Data Previous Rx's Medication Instructions Recorded rosuvastatin 20 mg tablet 20 mg PO DAILY Cholesterol #90 tabs 03/29/23 albuterol sulfate 90 mcg/actuation 2 inh inhalation Q4-6H PRN 11/23/23 aerosol inhaler (ProAir HFA) emphazema #8.5 grams bisoprolol fumarate 5 mg tablet 5 mg PO DAILY BP #90 tabs 11/23/23 clotrimazole 1 % topical solution 1 applic topical BID 2 weeks #30 mL 11/23/23 fluticasone 100 mcg-salmeterol 50 1 inh inhalation BID Asthma #60 ea 11/23/23 mcg/dose blistr powdr for inhalation (Advair Diskus) meloxicam 15 mg tablet 15 mg PO DAILY #90 tabs 11/23/23 ketoconazole 2 % shampoo 1 applic topical .COMPLEX #120 mL 01/02/24 mupirocin 2 % topical ointment 1 applic topical TID 5 days #22 04/28/24 grams Allergies Allergy/AdvReac Type Severity Reaction Status Date / Time No Known Allergies Allergy Verified 03/29/24 08:20 [facility] Disclaimer: The information contained in this section may have been updated after the patient was seen, as this information can be updated by other users. Medical History Left-sided chest wall pain COVID-19 Elevated fasting glucose RLL pneumonia Asthma Hypertension COPD (chronic obstructive pulmonary disease) Arthritis Insomnia DDD (degenerative disc disease) Abnormal result of cardiovascular function study HLD (hyperlipidemia) Dyspnea Encounter for pre-operative cardiovascular clearance Alcoholism Tobacco dependence syndrome Abnormal electrocardiography Incomplete right bundle branch block Fracture of medial malleolus, right, closed Closed right fibular fracture Surgical History History of open reduction and internal fixation (ORIF) procedure History of cardiac cath Family History Father Coronary artery disease Diabetes Heart attack Hyperlipidemia Hypertension Stroke Mother Hyperlipidemia Hypertension Coronary artery disease Sister Cancer Brain Social History Smoking Status: Current every day smoker tobacco type: cigarettes packs per day: 1 years smoked: 40 second hand exposure: No alcohol intake: current alcohol intake frequency: 3 or more drinks per day substance use type: former substance user, marijuana and crack/cocaine current occupational status: employed Travel in the last 8 weeks: None household members: none housing: house marital status: single number of children: 0 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 current occupational exposures/hazards: No caffeine: Yes ROS Obtained: Yes All systems reviewed & no additional complaints except as documented Physical Exam General General appearance: alert and in no apparent distress Head Head exam: atraumatic and normocephalic Eye Eye exam: Present normal appearance Chest Chest inspection: Present symmetric chest wall rise Respiratory Respiratory exam: Absent respiratory distress, wheezes, stridor, accessory muscle use or prolonged expiratory phase Cardiovascular Cardiovascular exam: Present regular rate and normal rhythm Abdominal Exam Abdominal exam: Absent distention Extremities Exam Extremities exam: Present other (Small scabs scattered throughout bilateral lower extremities. 1 cm circular blister with surrounding petechial medial aspect of left ankle.) Neurological Exam Neurological exam: Present alert, oriented X3 and normal gait Skin Skin exam: Present warm and dry; Absent intact (Bullous impetigo left ankle) Medical Decision Making Medical Records Medical records reviewed: Yes I reviewed the patient's medical records. Darius Inquiry Pt receiving controlled substance: No Vital Signs: 04/28/24 15:51 04/28/24 16:01 Temperature 97.9 F 97.9 F Temperature Source Oral Pulse Rate 94 H Pulse Rate [Left] 94 H Respiratory Rate 18 18 Blood Pressure 124/84 Blood Pressure [Right Arm] 124/84 Blood Pressure Mean [Right Arm] 97 Blood Pressure Source [Right Arm] Automatic Cuff Blood Pressure Position [Right Arm] Sitting 02 Sat by Pulse Oximetry 98 Medical Decision Narrative: 58-year-old male history of prediabetes presenting with blister to left ankle. Patient states that he thinks he has chiggers and scratched off on the bites with his toe last night. Has 1 cm blister medial aspect of left ankle with surrounding pus. No fevers or chills, redness, warmth, or any other concerns. History obtained with patient. On arrival, patient hemodynamically stable. Very well-appearing overall. He has pulse intact of his left ankle, no surrounding cellulitis. No lesions elsewhere. Because patient very well- appearing, no further workup deemed necessary including hematologic or imaging. Given mupirocin for outpatient management. Because patient at baseline without signs or symptoms of clinical decompensation, deemed appropriate for discharge. Results were relayed to patient who voiced understanding and were agreeable to outpatient management and follow up. I discussed my clinical impression with patient and answered all questions. At this time, the evidence for any other entities in the differential is insufficient to warrant any further testing or ED observation. This was explained as well. Advisory was given that persistent or worsening symptoms require further evaluation. I confirmed the understanding of this discussion. Critical Care Critical Care Time Critical Care Time: No
[2024-04-28 16:01] VITALS: BP 124/84; PULSE 94; RESP 18; TEMP 36.6
== END 2024-04-28 16:08 | disposition home or self-care (01) ==
PROVIDERS: Emergency Provider Emergency Medicine; PCP Nurse Practitioner Family
DX: L01.03 Bullous impetigo (principal); F17.210 Nicotine dependence, cigarettes, uncomplicated
CPT/HCPCS: 99283

== ENCOUNTER 2024-06-21 13:08 | Outpatient (CLI) | payer MEDICAID, SELFPAY ==
--- NOTE | 2024-06-21 13:11 | XR_ITS ---
FINAL REPORT CLINICAL HISTORY: left knee pain and swelling FINDINGS: LEFT KNEE 3 views of the left knee were obtained. There is no acute fracture or dislocation. Visualized joint spaces are normally aligned. Prominent prepatellar soft tissue swelling is present measuring 2.4 cm in thickness. IMPRESSION: Prominent prepatellar soft tissue thickening, with no acute bony abnormality. Reviewed, Interpreted and Dictated by Zak Zheng MD Transcribed by Shilpi Morris Authenticated and [facility]
== END 2024-06-21 23:59 | disposition home or self-care (01) ==
LOC: RAD 13:09
PROVIDERS: PCP Nurse Practitioner Family; Visit Provider Physician Assistant
DX: M25.562 Pain in left knee (principal)
CPT/HCPCS: 73562

== ENCOUNTER 2024-12-05 09:07 | Outpatient (CLI) | payer MEDICAID, SELFPAY ==
--- NOTE | 2024-12-05 09:12 | XR_ITS ---
FINAL REPORT CLINICAL HISTORY: fall, right hip pain and injury COMPARISON: None FINDINGS: A single view of the pelvis was obtained. Images of the right hip are included with the femur images. There are post-ORIF changes right proximal femur. No acute fracture. There are mild degenerative changes of the hip joint. Soft tissues are unremarkable. IMPRESSION: No acute bony abnormality. Reviewed, Interpreted and Dictated by Hemant Chavez MD Transcribed by Erica Wyatt Authenticated and [facility]
--- NOTE | 2024-12-05 09:12 | XR_ITS ---
FINAL REPORT CLINICAL HISTORY: fall, right femur pain and injury COMPARISON: None FINDINGS: 2 views of the right femur were obtained. There is a dynamic compression screw and ryan in place. There is a healed right intertrochanteric femur fracture with no residual fracture line. No acute fracture or hardware abnormality is identified. The joint spaces appear normal. IMPRESSION: Chronic changes as above without acute process. Reviewed, Interpreted and Dictated by Hemant Chavez MD Transcribed by Erica Wyatt Authenticated and [facility]
[2024-12-05 17:49] LABS: Microscopic, Urine URINE MICROSCOPIC (MICROSCOPIC)
[2024-12-05 18:19] LABS: Appearance,Urine CLEAR (Clear); Bilirubin,Urine Negative (Negative); Blood, Urine Negative (Negative); Color,Urine YELLOW (Yellow); Glucose,Urine (UA) Negative (Negative); Ketones,Urine Negative (Negative); Leukocyte Esterase,Urine Negative (Negative); Nitrate,Urine Negative (Negative); Protein,Urine Negative (Negative); Specific Gravity, Urine >= 1.030 (1.005-1.030); Urobilinogen,Urine 0.2 EU/dl (0.2)
[2024-12-05 18:23] LABS: Total Protein,Urine Random < 5.0 mg/dL (0.0-12.0)
[2024-12-05 19:08] LABS: 25-OH Vitamin D, Total 24.1 ng/mL (30-100); RBC,Urine Occasional #/hpf (0-3)
[2024-12-05 19:09] LABS: Bacteria,Urine 1+ /lpf; Calcium Oxalate Crystals,Urine 2+ /lpf; Mucus,Urine 4+ /lpf
[2024-12-05 19:15] LABS: Prostate Specific Ag Screen 0.3 ng/ml (0.0-4.0)
[2024-12-05 19:34] LABS: Vitamin B12 268 pg/mL (239-931)
[2024-12-05 20:45] LABS: HIV Combo NEGATIVE (Negative)
[2024-12-05 20:52] LABS: Hepatitis C Ab Qual. W/ RFX NEGATIVE (Negative)
== END 2024-12-05 23:59 | disposition home or self-care (01) ==
LOC: RAD 09:08
PROVIDERS: PCP Nurse Practitioner Family; Visit Provider Nurse Practitioner Family
DX: M89.8X5 Other specified disorders of bone, thigh (principal); M25.551 Pain in right hip; E53.8 Deficiency of other specified B group vitamins; R73.03 Prediabetes; I10 Essential (primary) hypertension; E55.9 Vitamin D deficiency, unspecified; Z11.4 Encounter for screening for human immunodeficiency virus [HIV]; Z12.5 Encounter for screening for malignant neoplasm of prostate; Z11.59 Encounter for screening for other viral diseases; W19.XXXA Unspecified fall, initial encounter
CPT/HCPCS: 72170; 73552; 81001; 82306; 82607; 83036; 84156; 86803; 87086; 87389; G0103

== ENCOUNTER 2024-12-18 15:09 | Outpatient (CLI) | payer MEDICAID, SELFPAY ==
--- NOTE | 2024-12-18 15:10 | CT_ITS ---
FINAL REPORT TECHNIQUE: Axial CT images of the chest were obtained without contrast. Low-dose protocol was utilized. This study was performed with techniques to keep radiation doses as low as reasonably achievable (ALARA). Individualized dose reduction techniques using automated exposure control or adjustment of mA and/or kV according to the patient's size were employed. CLINICAL HISTORY: lung cancer screening CURRENT SMOKER 11/22 PPD 40 YEARS COMPARISON: 12/13/2023 FINDINGS: CT CHEST WITHOUT, LOW DOSE SCREENING CT Di Vol: 2.90 mGy DLP: 111.77 mGy*cm There is no axillary, mediastinal, or hilar adenopathy. The heart size is normal. There is no pleural or pericardial effusion. The lung windows show a stable 5 mm nodule in the minor fissure. Old healed fracture deformities are noted in the right posterior ribs. Limited images of the upper abdomen demonstrate no acute findings. IMPRESSION: Stable minor fissure nodule. LR Category 2: 12 month follow-up low-dose chest CT is recommended per Fleischner criteria. Reviewed, Interpreted and Dictated by Zak Zheng MD Transcribed by Radha Etienne Authenticated and [facility]
== END 2024-12-18 23:59 | disposition home or self-care (01) ==
LOC: RAD 15:10
PROVIDERS: PCP Nurse Practitioner Family; Visit Provider Nurse Practitioner Family
DX: Z87.891 Personal history of nicotine dependence (principal)
CPT/HCPCS: 71271

== ENCOUNTER 2024-12-25 14:46 | Outpatient (CLI) | payer MEDICAID, SELFPAY ==
[2024-12-25 13:53] LABS: Basophils % 0.8 % (0.1-2.0); Eosinophils # 0.2 K/mm3 (0.0-0.4); Hematocrit 41.8 % (42.0-52.0); Hemoglobin 13.6 g/dL (14.1-18.0); Lymphocytes # 1.1 K/mm3 (0.7-4.5); Lymphocytes % 23.3 % (10-50); Mean Corpuscular HGB Conc 32.5 g/dL (31.8-35.4); Mean Corpuscular Hemoglobin 30.8 pg (27.0-31.2); Mean Corpuscular Volume 94.8 fl (80-94); Mean Platelet Volume 10.1 fl (7.4-10.4); Monocytes # 0.5 K/mm3 (0.1-1.0); Monocytes % 9.6 % (1.7-9.3); Neutrophils % 62.1 % (37.0-80.0); Platelet Count 266 K/mm3 (142-424); Red Blood Count 4.41 M/mm3 (4.60-6.20); Red Cell Distribution Width 12.5 % (11.5-17.5); White Blood Count 4.8 K/mm3 (4.8-10.8)
[2024-12-25 14:38] LABS: Alanine Aminotransferase 19 U/L (12-78); Albumin/Globulin Ratio 1.7 (1.1-1.8); Alkaline Phosphatase 146 U/L (38-126); Anion Gap 13.2 mEq/L (5-15); Aspartate Amino Transferase 25 U/L (17-59); Bilirubin,Total 0.5 mg/dl (0.2-1.3); Blood Urea Nitrogen 21 mg/dl (9-20); Calcium 9.3 mg/dl (8.4-10.2); Carbon Dioxide 29 mmol/L (22.0-30.0); Chloride 103 mmol/L (98-107); Estimated Glomerular Filt Rate 98 ml/min (>60); GFR (African American) 119 ML/MIN (>60); Globulin 2.3 g/dL (1.3-3.2); Glucose 163 mg/dl (74-100); Potassium 4.2 mmoL/L (3.5-5.1); Sodium 141 mmol/L (136-145); Total Protein,Serum 6.3 g/dl (6.3-8.2); Uric Acid 6.7 mg/dl (3.5-8.5)
[2024-12-25 14:41] LABS: Erythrocyte Sedimentation Rate 49 mm/hr (0-20)
[2024-12-25 14:44] LABS: C-Reactive Protein 10.2 mg/L (0-4)
== END 2024-12-25 23:59 | disposition home or self-care (01) ==
LOC: LAB.DROPOF 14:46
PROVIDERS: PCP Nurse Practitioner Family; Visit Provider Nurse Practitioner Family
DX: R22.43 Localized swelling, mass and lump, lower limb, bilateral (principal); M25.562 Pain in left knee
CPT/HCPCS: 80053; 84550; 85025; 85651; 86140

== ENCOUNTER 2025-01-17 09:00 | Outpatient (RCR) | payer MEDICAID, SELFPAY ==
--- NOTE | 2025-01-08 09:48 | HMH.PTOPEV ---
PT Outpatient Evaluation Rehab PT Outpatient Evaluation Start: 01/08/25 08:59 Freq: Status: Active Protocol: Document 01/08/25 09:32 CARMEN (Rec: 01/08/25 09:48 CARMEN [id number]) E-signed By Jovan Lane, PT Outpatient Therapy Subjective History Subjective History Pt is a 59 yom who is referred to [facility] outpatient Physical Therapy with complaints of R knee/Hip pain. He reports that he had an ORIF of his R femur in 2003, which has caused him to have intermittent pain into his R leg since then. He reports that he approximately 3-4 weeks ago, he slipped on ice and it worsened his hip and knee pain. He reports that he often uses a cane for mobility but did not bring it today. He reports that he has significant difficulty getting up/down out of the chair, being on his feet for longer periods (5-10 minutes maximum without increasing pain), and getting in/out of the car. He denies any other recent falls. PMH: Impetigo bullosa Left-sided chest wall pain COVID-19 Elevated fasting glucose RLL pneumonia Asthma Hypertension COPD (chronic obstructive pulmonary disease) Arthritis Insomnia DDD (degenerative disc disease ) Abnormal result of cardiovascular function study HLD (hyperlipidemia) Dyspnea Encounter for pre-operative cardiovascular clearance Alcoholism Tobacco dependence syndrome Abnormal electrocardiography Incomplete right bundle branch block Fracture of medial malleolus, right, closed Closed right fibular fracture New diagnosis of cancer in past 12 No months? Chief Complaint Pain Symptom Type Ache,Throb Symptoms Relieved By Heat,Ice,OTC Meds,Prescription Meds Symptoms Aggravated By Standing,Bending/Stooping, Walking,Lifting Prior Functional Limitations None Current Functional Limitations Lifting,Housework,Dressing, Standing,Squatting,Walking, Stairs,Balance Symptom Description Constant but Variable Level of pain today (0-10) 3 Pain scale - at its best (0-10) 1 Pain scale - at its worst (0-10) 9 Hip/Knee Eval Gait Observation General Gait Pattern Observation Antalgic Gait,Decrease Weight Bear (R),Decrease Stride Lngth (L) Assistive Device Assistive Devices None / NA Palpation Tenderness right Knee Palpation Finding Tenderness Knee Palpation Overall Comment 3/4 to medial and lateral joint line MMT Hip Flexion Strength Grade 3+ Fair+ Hip Abduction Strength Grade 2+ Poor+ Hip Adduction Strength Grade 2+ Poor+ Hip Extension Strength Grade 3 Fair Knee Extension Strength Grade 2+ Poor+ Knee Flexion Strength Grade 3+ Fair+ ROM Knee Extension Active Range of Motion ( -10 degrees) Knee Flexion Active Range of Motion ( 130 degrees) Special Tests Hip Scouring (Quadrant) Test Positive Right Knee Valgus Stress Test Negative Right Knee Varus Stress Test Negative Right Knee Juan Jose Test Negative Right Lower Extremity Functional Index Activities Today, do you or would you have any difficulty at all with: a.Any of your usual work, housework or Moderate difficulty school activities b. Your usual hobbies, recreational or Quite a bit of difficulty sporting activities c. Getting into or out of the bath A little bit of difficulty d. Walking between rooms A little bit of difficulty e. Putting on your shoes or socks Moderate difficulty f. Squatting A little bit of difficulty g. Lifting an object, like a bag of A little bit of difficulty groceries from the floor h. Performing light activities around A little bit of difficulty your home i. Performing heavy activities around Moderate difficulty your home j. Getting into or out of a car Quite a bit of difficulty k. Walking 2 blocks Moderate difficulty l. Walking a mile Quite a bit of difficulty m. Going up or down 10 stairs (about 1 A little bit of difficulty flight of stairs) n. Standing for 1 hour Quite a bit of difficulty o. Sitting for 1 hour A little bit of difficulty p. Running on even ground Moderate difficulty q. Running on uneven ground Extreme difficulty or unable to perform activity r. Making sharp turns while running fast Extreme difficulty or unable to perform activity s. Hopping Extreme difficulty or unable to perform activity t. Rolling over in bed A little bit of difficulty LEFI Score Lower Extremity Functional Index Score 38 Outpatient Therapy Assessment Impairments Problems/Impairmments Palpation Tenderness,Impaired Range of Motion,Impaired Strength,Impaired Gait Pattern ,Impaired Standing,Subjective C/O Pain Prognosis Rehab Potential Fair Comment w HEP compliance Clinical Impression Consistent with Diagnosis Yes Consistent with Hip/Knee OA Additional details: Pt presents with signs and symptoms suggestive of right knee/hip osteoarthritis. Pt would benefit from skilled PT to address his above impairments, prevent future injury and to promote a return to his PLOF. Short Term Goals Number of Weeks 4 Decreased Palpation Tenderness Yes: 1-2/4 to TTP Assessment Above Increase Range of Motion Yes: -5 - 130 R knee Increase Strength Yes: 3+/5 to R hip/knee Increase Ability to Stand Yes: 20 minutes without increasing pain Improve LEFI Score Yes: to 50 Decrease Subjective C/O Pain Yes: 5/10 with above activities Patient to be Ind w/ HEP Yes Detention Goals Number of Weeks 6 Decreased Palpation Tenderness Yes: 0-1/4 to TTP Assessment Above Increase Range of Motion Yes: 0-130 R knee Increase Strength Yes: 4-4+/5 to R hip/knee Increase Ability to Stand Yes: 45 minutes without increasing pain Improve LEFI Score Yes: to 60 Decrease Subjective C/O Pain Yes: 2-3/10 with above activities Patient to be Ind w/ Advanced HEP Yes Outpatient Therapy Plan of Care Treatment Plan May Include Therapeutic Exercise Including Home Yes Exercise Program Manual Therapy Techniques Yes Neuromuscular Re-education Yes Therapeutic Activities to Return to Yes Previous Functional/Work Level Gait Training Yes ADL/Self Care Education Yes Thermal Modalities Yes Electrical Stimulation Yes Ultrasound/Phonophoresis Yes Manual Lymphatic Drainage Yes Eval/Re-Eval Yes Frequency Times per week 2 Duration Number of Weeks 8 Addendums This patient is a candidate for social No or vocational rehab? Patient/Guardian verbally acknowledges Yes understanding of treatment program and consents to further treatment? Patient/Guardian verbally acknowledges Yes understanding of diagnosis, prognosis and goals for treatment? Eval Complexity PT Charges 13236 - Moderate Complexity Shoulder/Elbow Eval Shoulder Objective Measurements Elbow Objective Measurements PHYSICIAN CERTIFICATION: I certify the specified therapy services for Jaylon De Leon are required, authorized, and reviewed every 30 days.
== END 2025-01-17 23:59 | disposition home or self-care (01) ==
LOC: PT 09:00
PROVIDERS: PCP Nurse Practitioner Family; Visit Provider Nurse Practitioner Family
DX: M25.551 Pain in right hip (principal); M89.8X5 Other specified disorders of bone, thigh; S79.911A Unspecified injury of right hip, initial encounter
CPT/HCPCS: 97110; 97163; 97530

== ENCOUNTER 2025-01-24 10:22 | Day surgery (SDC) | payer MEDICAID, SELFPAY ==
[2025-01-22 14:57] VITALS: BMI 32.3
[2025-01-24 12:11] VITALS: BP 126/64; PULSE 68; RESP 17; TEMP 37; O2SAT 95
--- NOTE | 2025-01-24 12:26 | P.PNANES_ITS ---
[facility] Disclaimer: The information contained in this section may have been updated after the patient was seen, as this information can be updated by other users. Medical History Impetigo bullosa Left-sided chest wall pain COVID-19 Elevated fasting glucose RLL pneumonia Asthma Hypertension COPD (chronic obstructive pulmonary disease) Arthritis Insomnia DDD (degenerative disc disease) Abnormal result of cardiovascular function study HLD (hyperlipidemia) Dyspnea Encounter for pre-operative cardiovascular clearance Alcoholism Tobacco dependence syndrome Abnormal electrocardiography Incomplete right bundle branch block Fracture of medial malleolus, right, closed Closed right fibular fracture Surgical History History of open reduction and internal fixation (ORIF) procedure History of cardiac cath Family History Father Coronary artery disease Diabetes Heart attack Hyperlipidemia Hypertension Stroke Mother Hyperlipidemia Hypertension Coronary artery disease Sister Cancer Brain Social History Smoking Status: Current every day smoker tobacco type: cigarettes packs per day: 1 years smoked: 40 second hand exposure: No alcohol intake: current alcohol intake frequency: 3 or more drinks per day substance use type: former substance user, marijuana and crack/cocaine current occupational status: employed Travel in the last 8 weeks: None household members: none housing: house marital status: single number of children: 0 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 current occupational exposures/hazards: No caffeine: Yes Have you lived/traveled outside [place] in past 30 days?: No Contact w/someone who lives/traveled outside [place] past 30 days?: No Exposure to someone with infectious disease in past 14 days?: No Do you have a fever (greater than 100.4 F or 38 C)?: No Have you tested positive for COVID-19: No Exposed to someone with COVID-19 in past 14 days?: No Do you have a sore throat?: No Do you have a cough?: No Do you have any weakness?: No Do you have any diarrhea?: No Are you experiencing any unusual bleeding?: No Do you have any muscle aches/pain?: No Do you have any abdominal pain?: No Are you experiencing loss of taste or smell?: No [facility] Anesthesia Checklist Patient Identification Patient Identification: Arm Band Structural Data Admitted From: Home Planned Operative Procedure/s: Colonoscopy Consent for Planned Operative Procedure(s) Verified: Yes Verified Documents: Surgical Consent and History and Physical NPO Status Verified Time NPO: 05:00 (finished prep) Additional verifications Anesthesia Reactions: No Hx Blood Transfusions: No Blood Transfusion Reaction: No Airway Assessment Mallampati Score:: Class II C-Spine Mobility Assessed: Yes TMJ Mobility Assessed: Yes Dentition: Poor Dentition Neurological Assessment Level of Consciousness: Awake, Alert and Appropriate Anesthesia Plan Anesthesia Risk discussed: Yes Anesthesia Plan: Verified ASA Class: III Anesthesia Type: MAC
--- NOTE | 2025-01-24 12:58 | EXP.HP ---
History of Present Illness *Admission Date: 01/24/25 *Reason for visit:: Surveillance colonoscopy-personal history of adenomatous colon polyps *History of present illness: Mr. De Leon is a 59-year-old gentleman who is here for follow-up surveillance colonoscopy secondary to a personal history of adenomatous colon polyps. The examination is deemed medically necessary for surveillance colonoscopy. The patient has been seen, interviewed and examined prior to the procedure by both myself and the anesthesia provider. [facility] Disclaimer: The information contained in this section may have been updated after the patient was seen, as this information can be updated by other users. Medical History Impetigo bullosa Left-sided chest wall pain COVID-19 Elevated fasting glucose RLL pneumonia Asthma Hypertension COPD (chronic obstructive pulmonary disease) Arthritis Insomnia DDD (degenerative disc disease) Abnormal result of cardiovascular function study HLD (hyperlipidemia) Dyspnea Encounter for pre-operative cardiovascular clearance Alcoholism Tobacco dependence syndrome Abnormal electrocardiography Incomplete right bundle branch block Fracture of medial malleolus, right, closed Closed right fibular fracture Surgical History History of open reduction and internal fixation (ORIF) procedure History of cardiac cath Family History Father Coronary artery disease Diabetes Heart attack Hyperlipidemia Hypertension Stroke Mother Hyperlipidemia Hypertension Coronary artery disease Sister Cancer Brain Social History Smoking Status: Current every day smoker tobacco type: cigarettes packs per day: 1 years smoked: 40 second hand exposure: No alcohol intake: current alcohol intake frequency: 3 or more drinks per day substance use type: former substance user, marijuana and crack/cocaine current occupational status: employed Travel in the last 8 weeks: None household members: none housing: house marital status: single number of children: 0 current occupation: [employer] current occupational exposures/hazards: No caffeine: Yes Have you lived/traveled outside [place] in past 30 days?: No Contact w/someone who lives/traveled outside [place] past 30 days?: No Exposure to someone with infectious disease in past 14 days?: No Do you have a fever (greater than 100.4 F or 38 C)?: No Have you tested positive for COVID-19: No Exposed to someone with COVID-19 in past 14 days?: No Do you have a sore throat?: No Do you have a cough?: No Do you have any weakness?: No Do you have any diarrhea?: No Are you experiencing any unusual bleeding?: No Do you have any muscle aches/pain?: No Do you have any abdominal pain?: No Are you experiencing loss of taste or smell?: No Other Medical History Have you received the Flu Vaccine for this season: Yes Have you received the Pneumonia Vaccine: No Review of Systems Review of Systems Review of systems (narrative): Negative *Cardiovascular Comments: Negative *Gastrointestinal Comments: Negative *Genitourinary Comments: Negative *Musculoskeletal Comments: Negative *Neurologic Comments: Negative Meds Home Medications and Allergies Home Medications ?Medication ?Instructions ?Recorded ?Confirmed ?Type ketoconazole 2 % shampoo 1 applic topical .COMPLEX #120 mL 01/02/24 01/24/25 Rx Advair Diskus 100 mcg-50 mcg/dose 1 inh inhalation BID Asthma #60 ea 06/06/24 01/24/25 Rx powder for inhalation (fluticasone propion-salmeterol) Ventolin HFA 90 mcg/actuation 2 inh inhalation Q4-6H PRN 06/06/24 01/24/25 Rx aerosol inhaler (albuterol sulfate) emphazema #8 grams rosuvastatin 20 mg tablet 20 mg PO DAILY Cholesterol #90 tabs 10/01/24 01/24/25 Rx bisoprolol fumarate 5 mg tablet 5 mg PO DAILY BP #90 tabs 11/05/24 01/24/25 Rx meloxicam 15 mg tablet See Rx Instructions .Route 01/24/25 01/24/25 Rx .COMPLEX #90 tabs New Prescriptions to Start Prescriptions: Allergies Allergy/AdvReac Type Severity Reaction Status Date / Time No Known Allergies Allergy Verified 01/24/25 12:08 Exam Data for Last 24 hours Vital signs and Labs for Last 24 Hours: Temp Pulse Resp BP Pulse Ox O2 Del Method 98.6 F 68 17 126/64 95 Room Air 01/24/25 12:11 01/24/25 12:11 01/24/25 12:11 01/24/25 12:11 01/24/25 12:11 01/24/25 12:11 I & O for Last 24 hours: Intake & Output 03/03/25 03/04/25 03/05/25 03/06/25 23:59 23:59 23:59 23:59 Weight 225 lb *Routine HEENT Exam Head: Present normocephalic Eye: Present EOMI and PERRL ENT: Present mucous membranes moist *Routine Neck Exam Neck: Present supple *Routine Respiratory Exam Respiratory: Present CTA bilaterally *Routine Cardiovascular Exam Cardiovascular: Present RRR *Routine Abdominal Exam Abdominal: Present soft and normoactive bowel sounds; Absent tenderness *Routine Rectal Exam Rectal:: deferred *Routine Genitalia Exam Genitalia:: deferred *Routine Extremities Exam Extremities: Absent cyanosis, clubbing or edema *Routine Skin Exam Skin: Present warm; Absent rash *Routine Neurological Exam Neurological: Present alert and oriented X3 Assessment and Plan *Assessment and plan (1) Personal history of adenomatous and serrated colon polyps: Status: Acute Category: Medical Code(s): Z86.0101 - Personal history of adenomatous and serrated colon polyps Plan A/P: 1. Personal history of adenomatous colon polyps is the preprocedural diagnosis. The patient will be anesthetized/sedated using MAC sedation. The patient has been seen and examined. Cardiac and lung assessment prior to the examination is stable. Proceed with planned surveillance colonoscopy
[2025-01-24 13:04] VITALS: O2SAT 100
--- NOTE | 2025-01-24 13:06 | P.PCN_ITS ---
[facility] Procedure Note Date: 01/24/25 Time: 13:21 Procedure Note:: Colonoscopy Procedure Report: Colonoscopy with cold snare polypectomy Endoscopist: Jhonny Farr II, MD Referring physician: HALEY Delgadillo Date of Procedure: January 24, 2025 Equipment: Olympus 190 variable stiffness pediatric colonoscope Sedation: MAC sedation Indication: Mr. De Leon is a 59-year-old gentleman who states that he had a colonoscopy 5 or 6 years ago (in [place] with Domo Merritt MD) had a couple of colon polyps. He had to return and have early relook because of the size and nature (i.e. possible advanced adenomatous polyps). I do not have these reports. He reports no abdominal pain, weight loss, change in his bowel habits or rectal bleeding. He reports no family history of colon cancer. Procedure: Prior to the procedure, a history and physical exam was performed, and patient's medications and allergies were reviewed. The risks, benefits and alternatives of the sedation and procedure were discussed with the patient. All questions were answered and informed consent was obtained. The patient was brought to the procedure room. Patient identification and proposed procedure were verified by the physician and the nurse. The patient was placed in a left lateral decubitus position and the scope was passed under direct vision. Throughout the procedure, the patient's blood pressure, pulse, and oxygen saturations were monitored continuously. The colonoscopy was accomplished without difficulty. The patient tolerated the procedure well. Findings: On digital rectal examination there was normal rectal tone. There were no external hemorrhoids. The prostate was 2+, smooth, soft, symmetric without nodules. The colonoscope was introduced through the anal canal to the rectum and advanced to the cecum. The ileocecal valve and appendiceal orifice were identified. The scope was advanced a short distance into the ileum which appeared grossly normal. The scope was then withdrawn into the colon. There were 3 polyps (ascending x 1 (4 mm) and transverse x 2 (3 and 4 mm)). These were removed via cold snare polypectomy. The cecum, ascending and transverse colon and mucosa were grossly normal. There were very mildly scattered diverticuli throughout the descending and sigmoid colon (LEFT colon). The rectum itself was normal. Upon retroflexion within the rectum there were grade 1-2 internal hemorrhoids. The preparation was excellent throughout with [place] Preparation Score of 9. The cecal time was 12 minutes. Impression: 1. Diminutive colonic polyps x 3 2. Mild left-sided diverticulosis 3. Grade 1-2 internal hemorrhoids Plan: I will follow-up the polyp histology and recommend repeat surveillance colonoscopy again in 5 to 7 years based upon the pathology. I would encourage psyllium bulking fiber supplementation on a long-term daily maintenance basis.
[2025-01-24 13:24] VITALS: BP 103/63; PULSE 76; RESP 16; TEMP 36.4; O2SAT 96
[2025-01-24 13:33] VITALS: BP 104/51; PULSE 61; RESP 16; O2SAT 97
[2025-01-24 13:44] VITALS: BP 116/66; PULSE 60; RESP 16; O2SAT 97
[2025-01-24 13:50] VITALS: BP 119/67; PULSE 61; RESP 18; O2SAT 99
== END 2025-01-24 13:55 | disposition home or self-care (01) ==
PROVIDERS: PCP Nurse Practitioner Family; Visit Provider Internal Medicine Gastroenterology
PROC: 0DJD8ZZ Inspection of Lower Intestinal Tract, Via Natural or Artificial Opening Endoscopic (ICD-10-PCS; CPT 45378; principal; 2025-01-24 12:00)
DX: K63.5 Polyp of colon (principal); K57.30 Diverticulosis of large intestine without perforation or abscess without bleeding; K64.8 Other hemorrhoids; Z86.0101 Personal history of adenomatous and serrated colon polyps
CPT/HCPCS: 45385

== ENCOUNTER 2025-02-07 09:00 | Outpatient (RCR) | payer MEDICAID, SELFPAY | END 2025-02-07 23:59 | disposition home or self-care (01) | LOC: PT 09:00 | PROVIDERS: PCP Nurse Practitioner Family; Visit Provider Nurse Practitioner Family | DX: M25.551 Pain in right hip (principal); M89.8X5 Other specified disorders of bone, thigh | CPT/HCPCS: 97016; 97110; 97530 ==

== ENCOUNTER 2025-10-07 09:47 | Outpatient (CLI) | payer MEDICAID, SELFPAY ==
[2025-10-07 10:17] LABS: Hematocrit 42.4 % (42.0-52.0); Hemoglobin 14.1 g/dL (14.1-18.0); Immature Granulocytes % 0.4 %; Mean Corpuscular HGB Conc 33.3 g/dL (31.8-35.4); Mean Corpuscular Hemoglobin 31.5 pg (27.0-31.2); Mean Corpuscular Volume 94.9 fl (80-94); Nucleated Red Blood Cells % 0 %; Platelet Count 245 K/mm3 (142-424); Red Blood Count 4.47 M/mm3 (4.60-6.20); Red Cell Distribution Width-SD 43.5 fL; White Blood Count 8.2 K/mm3 (4.8-10.8)
[2025-10-07 11:23] LABS: Albumin Level 3.9 g/dl (3.5-5.0); Chloride 103 mmol/L (98-107); Potassium 4.7 mmoL/L (3.5-5.1); Sodium 140 mmol/L (136-145)
[2025-10-07 11:25] LABS: Alanine Aminotransferase 19 U/L (12-78); Anion Gap 9.7 mEq/L (5-15); Aspartate Amino Transferase 26 U/L (17-59); Bilirubin,Unconjugated 0.9 mg/dL (0.0-1.1); Blood Urea Nitrogen 23 mg/dl (9-20); Carbon Dioxide 32 mmol/L (22.0-30.0); Creatinine,Serum 0.80 mg/dl (0.66-1.25); Estimated Glomerular Filt Rate 98 ml/min (>60); GFR (African American) 119 ML/MIN (>60)
[2025-10-07 11:26] LABS: Alkaline Phosphatase 90 U/L (38-126); Bilirubin,Direct 0.1 mg/dl (0.0-0.4); Bilirubin,Indirect 0.9 mg/dL (0.0-0.9); Bilirubin,Total 1.0 mg/dl (0.2-1.3); Calcium 9.0 mg/dl (8.4-10.2); Cholesterol 164 mg/dl (140-200); Glucose 111 mg/dl (74-100); Magnesium 1.6 mg/dl (1.6-2.3); Total Protein,Serum 6.5 g/dl (6.3-8.2); Triglycerides 119 mg/dl (30-150)
[2025-10-07 11:54] LABS: Free T4 (Free Thyroxine) 0.93 ng/dl (0.78-2.19)
[2025-10-07 11:56] LABS: Thyroid Stimulating Hormone 0.62 uIU/mL (0.465-4.68)
[2025-10-07 11:58] LABS: HDL Cholesterol 46 mg/dl (40-60)
== END 2025-10-07 23:59 | disposition home or self-care (01) ==
LOC: LAB 09:48
PROVIDERS: PCP Nurse Practitioner Family; Visit Provider Physician Assistant
DX: I25.10 Atherosclerotic heart disease of native coronary artery without angina pectoris (principal); E78.2 Mixed hyperlipidemia
CPT/HCPCS: 36415; 80048; 80061; 80076; 83735; 84439; 84443; 85025